=== PATIENT | male | born 1940 | race Caucasian/White ===

== ENCOUNTER 2017-02-24 02:09 | Inpatient (IN) ==
[2017-02-24] MEDS ORDERED: ATROPINE 1 MG/10 ML SYRINGE IV STA (02:20)
[2017-02-24] MEDS ORDERED: GLUCAGON 1 MG VIAL IV STA (02:21)
[2017-02-24] MEDS ORDERED: GLUCAGON 1 MG VIAL ONE (02:21)
[2017-02-24] MEDS ORDERED: ATROPINE 1 MG/1 ML VIAL ONE (02:21)
[2017-02-24] MEDS ORDERED: GLUCAGON 1 MG VIAL IM ONE (02:30)
[2017-02-24] MEDS ORDERED: MAGNESIUM SULF RIDER 4 GM in PREMIX 1 EACH IV PRN (02:47)
[2017-02-24] MEDS ORDERED: MAGNESIUM SULF RIDER 2 GM in PREMIX 1 EACH IV PRN ×2 (02:47→11:20)
--- NOTE | 2017-02-24 02:50 | Emergency Department Note ---
I, Shantell Porter, am scribing for, and in the presence of, Jun Dai MD 02: 28. ISuhas Kevin Lee, MD, personally performed the services described in this documentation, ascribed by Shantell Porter in my presence, and it is both accurate and complete . Arrival - Arrival Limitations: No Limitations Source: Patient - History of Present Illness HPI Narrative: Pt is a 77 y/o male who was transferred from [facility] for further evaluation of SOB with weakness that started earlier yesterday. Pt original BP was 70/44 and slightly elevated troponin of .1, at other facility and had associated sxs of nausea, lightheadedness, and decreased ability to stand. Pt does use a cane. Pt was recently taken off hospice CHF care, due to improvement. 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 Pt's BP is 132/ 50 in ED with a heart rate of 40. Pt sees Dr. Turner. Onset (ago): hour(s) Consistency: constant Severity: moderate Severity scale (1-10): 5 Quality: aching, fullness Allergies/Adverse Reactions: Allergies Allergy/AdvReac Type Severity Reaction Status Date / Time No Known Allergies Allergy Unverified 05/05/16 01:30 Home Medications: Home Medications Medication Instructions Recorded Confirmed Type Clopidogrel [Plavix] 75 mg PO DAILY 05/05/16 05/05/16 History DULoxetine [Cymbalta] 20 mg PO BEDTIME 05/05/16 05/05/16 History Gabapentin 300 mg PO TID 05/05/16 05/05/16 History Isosorbide Mononitrate [Isosorbide 60 mg PO DAILY 05/05/16 05/05/16 History Mononitrate ER] Melatonin 5 mg PO BEDTIME 05/05/16 05/05/16 History Omeprazole [Prilosec] 20 mg PO DAILY 05/05/16 05/05/16 History Simvastatin 5 mg PO BEDTIME 05/05/16 05/05/16 History Tamsulosin [Flomax] 0.4 mg PO DAILY 05/05/16 05/05/16 History busPIRone [Buspar] 10 mg PO BEDTIME 05/05/16 05/05/16 History HYDROcodone/ACETAMIN 10-325 [Matthews 1 tablet PO Q8H PRN #30 tablet 05/07/16 Rx 10-325] Insulin NPH Hum/Reg Insulin Hm 25 unit SUBCUT BID #100 ml 05/07/16 Rx [NovoLIN 70/30] Lisinopril [Prinivil] 40 mg PO DAILY tablet 05/07/16 Rx amLODIPine [Norvasc] 5 mg PO DAILY tablet 05/07/16 Rx clonazePAM [Clonazepam] 1 mg PO BID #60 tablet 05/07/16 Rx Review of System - Review of System 12 point system: reviewed and no additional remarkable complaints except as stated - Review of System Constitutional: Present: weakness. Absent: fever Respiratory: Present: respiratory distress (SOB) Cardiovascular: Absent: chest pain Gastrointestinal: Present: nausea. Absent: abdominal pain, vomiting, diarrhea Musculoskeletal: Absent: arm pain, back pain Neurological: Present: weakness (lightheadedness), abnormal gait. Absent: headache, numbness, paresthesias, confusion Medical,Surgical,& Family Hx - Medical History Cardio: History of: CHF, CAD, Hypertension Neurology: History of: Cerebrovascular Accident (X3) Respiratory: History of: COPD - Surgical History Thoracic Surgeries: Surgical HX of;: Lobectomy (pt states left lower lobe removed) Abdominal Surgeries: Surgical HX of: Abdominal Surgery, Cholecystectomy, Hernia Repair - Social History Smoking Status: Former smoker Marital Status: Lives With:: Spouse Functional capacity: uses cane/walker Exam Vital Signs: Vital Signs Temperature 97.2 F L 02/24/17 02:09 Pulse Rate 40 L 02/24/17 02:09 Respiratory Rate 18 02/24/17 02:09 Blood Pressure 132/50 02/24/17 02:09 O2 Sat by Pulse Oximetry 95 02/24/17 02:09 - General General appearance: alert, in no apparent distress - Head Head exam: Present: atraumatic, normocephalic - Eye Eye exam: Present: PERRL, EOMI - ENT ENT exam: Present: mucous membranes moist. Absent: mucous membranes dry - Neck Neck exam: Present: full ROM. Absent: tenderness - Chest Chest inspection: Present: symmetric chest wall rise. Absent: tenderness - Respiratory Respiratory exam: Present: normal lung sounds bilaterally. Absent: accessory muscle use, respiratory distress - Cardiovascular Cardiovascular exam: Present: bradycardia, normal heart sounds - Extremities Exam Extremities exam: Present: full ROM. Absent: tenderness, pedal edema - Neurological Exam Neurological exam: Present: alert, oriented X3, CN II-XII intact. Absent: motor sensory deficit - Psychiatric Psychiatric exam: Present: normal affect, normal mood - Skin Skin exam: Present: warm, dry Course Course Narrative: pt currently asymptomatic while lying in bed will admit for cards evaluate and treat. hopefully just over B blocked. Results - Labs Lab Results: I have reviewed the patients labs (from OSH see scanned sheets) Disposition Clinical Impression: Bradycardia, Hypotension, Elevated troponin, History of CHF (congestive heart failure) Case discussed with: patient, patient's family Disposition: Still a Patient Condition: Guarded
[2017-02-24] MEDS ORDERED: ENOXAPARIN 30 MG/0.3 ML SYRINGE SUBCUT SCH (03:00)
[2017-02-24 03:26] LABS: Basophils % 0.3 % (0.0-0.8); Eosinophils # 0.4 10*3/uL (0.0-0.87); Eosinophils % 3.2 % (0.00-10.9); Hematocrit 40.6 VOL% (42.0-52.0); Hemoglobin 14.2 GM/DL (14.0-18.0); Immature Granulocytes % 0.7 %; Lymphocytes # 3.8 10*3/uL (1.4-4.0); Lymphocytes % 27.8 % (21.2-54.2); Mean Corpuscular Hemoglobin 32 PG (27-34); Mean Corpuscular Volume 91.9 FL (87-102); Mean Platelet Volume 12.5 FL (9.6-12.0); Monocytes # 1.6 10*3/uL (0.11-0.8); Monocytes % 11.8 % (1.7-12.7); Neutrophils # 7.7 10*3/uL (1.4-7.4); Neutrophils % 56.2 % (38.7-73.9); Platelet Count 207 T/CUMM (130-400); Red Blood Count 4.42 MC/CUMM (3.8-5.5); Red Cell Distribution Width 14.3 % (9.3-17.3); White Blood Count 13.7 T/CUMM (4-12)
[2017-02-24 03:32] LABS: Albumin 2.7 G/DL (3.4-5.0); Bilirubin,Total 0.7 MG/DL (0.2-1.0); Calcium 8.6 MG/DL (8.5-10.1); Osmolality,Calculated 291.1 MOS/KG (273-304); Potassium 3.4 MMOL/L (3.5-5.1); Thyroid Stimulating Hormone 2.5 uIU/ml (0.358-3.74); Total Protein 5.6 G/DL (6.4-8.3)
[2017-02-24 03:33] LABS: Troponin I Only 0.097 NG/ML (0.00-0.045)
[2017-02-24] MEDS: SODIUM CHLORIDE 0.45% 1,000 ML IV SCH ×2 (04:05→16:05)
--- NOTE | 2017-02-24 08:22 | EKG Report ---
Stationary ECG Study [facility] ER Test Date: 02/24/2017 2:19:31 AM Pat Name: MAURILIO PHAN Department: Room: 120 Gender: M Loan Review Analyst: : 1940 Requested by: Jun Chambers Order Number: [id number] Reading MD: TOMASA CLARKE Intervals [place] Rate: 38 P: 999 [place]: 0 QRS: -26 QRSD: 103 T: -30 QT: 511 QTc: 432 Interpretive Statements SUPRAVENTRICULAR BRADYCARDIA BORDERLINE LEFT AXIS DEVIATION ST DEVIATION AND MODERATE T-WAVE ABNORMALITY, CONSIDER ANTERIOR ISCHEMIA Electronically Signed On 02-24-17 09:50:32 CDT by TOMASA CLARKE [email or web address]
--- NOTE | 2017-02-24 08:37 | Cardiology History & Physical ---
Assessment and Plan - Time spent with patient Time spent with patient: Greater than 30 minutes (1) Acute diastolic CHF (congestive heart failure), NYHA class 3 Status: Acute Assessment and plan: SEE PLAN OF CARE LISTED BELOW Current Visit: Yes (2) CAD (coronary artery disease) Status: Chronic Assessment and plan: SEE PLAN OF CARE LISTED BELOW Current Visit: Yes (3) Hx of CABG Status: Chronic Assessment and plan: SEE PLAN OF CARE LISTED BELOW Current Visit: Yes (4) Elevated troponin Status: Acute Assessment and plan: SEE PLAN OF CARE LISTED BELOW Current Visit: Yes (5) Chest pain Status: Acute Assessment and plan: SEE PLAN OF CARE LISTED BELOW Current Visit: Yes (6) History of CVA (cerebrovascular accident) Status: Chronic Assessment and plan: SEE PLAN OF CARE LISTED BELOW Current Visit: No (7) Debility, unspecified Status: Chronic Assessment and plan: SEE PLAN OF CARE LISTED BELOW Current Visit: No (8) CAD (coronary artery disease) Status: Chronic Current Visit: No (9) Hypertension Status: Chronic Assessment and plan: SEE PLAN OF CARE LISTED BELOW Current Visit: No (10) Dyslipidemia Status: Chronic Assessment and plan: SEE PLAN OF CARE LISTED BELOW Current Visit: No (11) Diabetes Status: Chronic Assessment and plan: SEE PLAN OF CARE LISTED BELOW Current Visit: No (12) Bradycardia Status: Acute Assessment and plan: SEE PLAN OF CARE LISTED BELOW Current Visit: Yes (13) Hypotension Status: Acute Assessment and plan: SEE PLAN OF CARE LISTED BELOW Current Visit: Yes History of Present Illness Chief complaint: Bradycardia, chest pain, elevated troponin, known coronary artery disease History of present illness: LEAN SPECIALIST: DR. MCNULTY PCP: DR. TERRENCE GONZALEZ Patient is being seen in the CCU. Mr. Roy, 77WM, previously followed by Dr. Mcnulty in hospital with no clinic follow-up. Previously seen Dr. Lyles in [place], [place] but not followed up in many years. Risk factors include: Age, known coronary artery disease (S/P CABG 2006 in [place], [place]), hypertension, dyslipidemia, diabetes, CVA, sedentary lifestyle. He also has history of bradycardia, COPD, general debility from 3 prior strokes. There are no records in [facility] or [facility] regarding prior heart catheterizations however, patient has had a C since his CABG where a vein graft was noted to be occluded. He believes this may have been at [facility] and I will request records. Echocardiogram 05/05/2016: EF 55%, grade 1 diastolic dysfunction, PAP 17 mmHg. Presented to the ED of [facility] in transfer from [facility] emergency department with complaints of shortness of breath, weakness hypotension and bradycardia. Troponin was noted to be 0.1. Initially, blood pressure was noted be 70/44, heart rate 38 beat p.m. Upon arrival to the ED [facility] blood pressure 132/50, heart rate 40 (sinus bradycardia). Tuesday, while sitting, patient reports he began to feel chest pressure in the center of his chest without radiation. It did cause shortness of breath, no nausea or diaphoresis. He took one nitroglycerin and the chest pain improved but continued to return intermittently through the remainder of the week. Rates the discomfort as a 7 on a scale of 1-10, currently chest pain- free. Did experience worsening shortness of breath since Tuesday. Patient usually takes Lasix 80 mg orally daily. Over the course of the past several days he has taken several additional Lasix and diuresed very well. ProBNP greater than 2000 at [facility]. This morning, he is not orthopneic and is breathing comfortably. He still has crackles in the bases posteriorly. Patient is on metoprolol. After reviewing his heart rhythms it is noted that this is a sinus bradycardia. Will hold metoprolol as well as clonidine and monitor his heart rate. Patient was hospitalized in the fall 2015 was noted to have a heart rate in the 40s and 50s at that time. Depending on his response to holding juan blocking agents, may be candidate for permanent pacemaker implantation. Keeping patient NPO. He has received aspirin, Lovenox, Plavix. Holding nitrates, SUGAR and beta blockers due to hypotension which is improving. He did take his cholesterol-lowering agent last evening. He is receiving IV hydration at this time and additionally, no cardiomyopathy has been noted. He has responded well in all continue to hold his antihypertensives at this time. EKG this morning. Continue to cycle his cardiac biomarkers. Patient may be a candidate for cardiac catheterization. I did speak with and Mrs. Roy about the possibility and they are agreeable to proceed. Tomorrow, may consider echocardiogram or schedule outpatient echo and evaluate EF with left ventriculogram. I will further discuss with Dr. Farooq and await additional recommendations. ASSESSMENT/PLAN: 1. CHEST PAIN - concerning for angina. Keeping him NPO. Has received appropriate medications as able 2. KNOWN CAD - S/P CABG 2006 with [facility] since identifying an occluded vein graft. Requesting records from [place], [place] 3. HYPOTENSION - resolved. May have been volume depleted as patient did take several additional oral diuretics. With IV hydration and holding of antihypertensives, this has improved. 4. DYSLIPIDEMIA - fasting lipid profile. Continue lipid-lowering agent 5. BRADYCARDIA - sinus bradycardia. Prior history of slow heart rates primarily in the 40s and 50s. Holding metoprolol and clonidine. Will continue to follow. May eventually need permanent pacemaker. 6. ELEVATED TROPONIN -continue cycle cardiac biomarkers. He has been treated as his blood pressure will allow with appropriate medications. 7. ACUTE CHF -etiology uncertain. Traditionally he has had a normal ejection fraction with grade 1 diastolic dysfunction. Certainly, this is diastolic dysfunction possibly related to his sinus bradycardia. [place] Heart Association Classification III 8. DEBILITY - continue current plan of care 9. HISTORY OF CVA - taking aspirin and Plavix for history of 3 prior CVAs leaving him somewhat physically debilitated 10. DIABETES - hold Metformin. Sliding scale insulin. Home Medications Medication Instructions Recorded Confirmed Type Clopidogrel [Plavix] 75 mg PO DAILY 05/05/16 02/24/17 History DULoxetine [Cymbalta] 20 mg PO BEDTIME 05/05/16 02/24/17 History Gabapentin 300 mg PO TID 05/05/16 02/24/17 History Isosorbide Mononitrate [Isosorbide 60 mg PO DAILY 05/05/16 02/24/17 History Mononitrate ER] Melatonin 5 mg PO BEDTIME 05/05/16 02/24/17 History Omeprazole [Prilosec] 20 mg PO DAILY 05/05/16 02/24/17 History Simvastatin 5 mg PO BEDTIME 05/05/16 02/24/17 History Tamsulosin [Flomax] 0.4 mg PO DAILY 05/05/16 02/24/17 History busPIRone [Buspar] 10 mg PO BEDTIME 05/05/16 02/24/17 History HYDROcodone/ACETAMIN 10-325 [Etta 1 tablet PO Q8H PRN #30 tablet 05/07/1602/24 Rx 10-325] Insulin NPH Hum/Reg Insulin Hm 25 unit SUBCUT BID #100 ml 05/07/16 02/24/17 Rx [NovoLIN 70/30] Lisinopril [Prinivil] 40 mg PO DAILY tablet 05/07/16 02/24/17 Rx amLODIPine [Norvasc] 5 mg PO DAILY tablet 05/07/16 02/24/17 Rx clonazePAM [Clonazepam] 1 mg PO BID #60 tablet 05/07/16 02/24/17 Rx Bisacodyl Tab [Dulcolax Tab] 5 mg PO BEDTIME 02/24/17 02/24/17 History Bisacodyl Tab [Dulcolax Tab] 5 mg PO DAILY 02/24/17 02/24/17 History Cholecalciferol [Vitamin D3] 1,000 unit PO DAILY 02/24/17 02/24/17 History Furosemide 40 mg PO BID 02/24/17 02/24/17 History Meloxicam 7.5 mg PO DAILY 02/24/17 02/24/17 History Metoprolol Tartrate 25 mg PO DAILY 02/24/17 02/24/17 History Potassium Chloride 10 meq PO BID 02/24/17 02/24/17 History tiZANidine [Zanaflex] 4 mg PO QID 02/24/17 02/24/17 History Allergies Allergy/AdvReac Type Severity Reaction Status Date / Time No Known Allergies Allergy Unverified 05/05/16 01:30 Review of systems: REVIEW OF SYSTEMS: - Constitutional Constitutional: Present: Fatigue. Absent: syncope, anorexia, night sweats - EENT Eyes: Absent: blurry vision, loss of vision, diplopia Ears: Absent: decreased hearing, ear pain, ear discharge - Cardiovascular Cardiovascular: Present: chest pain with exertion and at rest. Dyspnea at rest , dyspnea on exertion, orthopnea. Bilateral lower extremity edema improved overnight. Denies palpitations. Absent: chest pain with deep breath, claudication - Respiratory Respiratory: Present: CATES, cough. Absent: wheezing, hemoptysis, change in phlegm color - Gastrointestinal Gastrointestinal: Denies : constipation. Absent: abdominal pain, hematemesis , hematochezia, melena, change in bowel habits, nausea - Genitourinary Genitourinary: Absent: difficulty urinating, dysuria, urinary hesitancy, flank pain - Musculoskeletal Musculoskeletal: Present: back pain Absent: joint swelling, muscle cramps, muscle weakness - Neurological Neurological: Present: Poor gait without frequent falls. Generalized weakness absent: dizziness - Psychiatric Psychiatric: Absent: anxiety, depression, difficulty concentrating - Endocrine Endocrine: Present: fatigue. Absent: cold intolerance, heat intolerance, polyuria, polyphagia, polydipsia - Hematologic/Lymphatic Hematologic/Lymphatic: Present: easy bruising. Absent: easy bleeding -Integumentary Integumentary: Absent: lesions, rashes, skin breakdown Medical,Surgical,& Family Hx - Medical History Cardio: History of: CHF, CAD, Hypertension Neurology: History of: Cerebrovascular Accident (X3) Endocrine: History of: Diabetes Mellitus (IDDM), Dyslipidemia Respiratory: History of: COPD - Surgical History Thoracic Surgeries: Surgical HX of;: Lobectomy (pt states left lower lobe removed) Abdominal Surgeries: Surgical HX of: Abdominal Surgery, Cholecystectomy, Hernia Repair - Social History Smoking Status: Never smoker Frequency of Alcohol Use: None Type of Drug Use: None Marital Status: Lives With:: Spouse Functional capacity: uses cane/walker Cardiology Physical Exam - Constitutional Vitals: Vital Signs Temp Pulse Resp BP Pulse Ox 97.2 F L 38 L 18 132/53 93 L 02/24/17 03:50 02/24/17 07:00 02/24/17 07:00 02/24/17 07:00 02/24/17 07:00 Intake and Output 02/23/17 02/24/17 02/24/17 23:59 07:59 15:59 Intake Total 0 / 0 Balance 0 / 0 Intake: Oral 0 / 0 Other: Emesis 0 # Voids 0 # Bowel Movements 0 Weight 80.031 kg Patient Weight 02/24/17 23:59 Weight 80.031 kg Exam: General: [Appears well with no apparent distress.] [Pleasant and cooperative. ] [Appears comfortable.] HEENT: [PERRL, normocephalic, atraumatic. Mucous membranes moist. No jaundice noted. Conjunctiva moist and clear, sclerae anicteric] Neck: Unable to assess for JVD. No thyromegaly or lymphadenopathy noted. No carotid bruit appreciated Cardiac: [Slow rate and rhythm.] [No obvious murmur rub or gallop.] Lungs: [Inspiratory crackles noted posteriorly in the bases without accessory muscle use to assist the respiratory pattern.] Oxygen in use via nasal cannula. Well-healed left flank scar Abdomen: Soft, bowel sounds normoactive. Nontender and nondistended. No abdominal bruit or thrill noted. No masses noted. Musculoskeletal: No fluid collection. Decreased range of motion is noted. Extremities: No clubbing, cyanosis noted. [ No edema noted.] Upper extremity pulses 2+. Lower extremity pulses 2+. Capillary refill less than 3 seconds. Skin: No unusual lesions or rashes. No skin breakdown appreciated. Neuro: Awake, alert and oriented 3. Moves all extremities but severe, generalized poor strength noted. No essential tremor is appreciated. Result/EKG - Labs CBC & BMP: 02/24/17 02:39 02/24/17 02:39 Lab Results: I have reviewed the past 24 hour labs Labs: Laboratory Results - last 24 hr 02/24/17 02/24/17 02/24/17 02:39 02:39 02:39 WBC 13.7 H RBC 4.42 Hgb 14.2 Hct 40.6 L MCV 91.9 MCH 32 MCHC 35.0 RDW 14.3 Plt Count 207 MPV 12.5 H Neut % (Auto) 56.2 Lymph % (Auto) 27.8 Bertie % (Auto) 11.8 Eos % (Auto) 3.2 Baso % (Auto) 0.3 Neut # (Auto) 7.7 H Lymph # (Auto) 3.8 Bertie # (Auto) 1.6 H Eos # (Auto) 0.4 Baso # (Auto) 0.0 Immature Gran % 0.7 Nucleated RBC % 0.0 Immature Gran # 0.10 Nucleated RBCs # 0.00 Immature Plt Fraction 0.0 Sodium 142 Potassium 3.4 L Chloride 108 H Carbon Dioxide 27 Anion Gap 10.4 BUN 29 H Creatinine 0.90 GFR Calculation 93 BUN/Creatinine Ratio 32.00 H Glucose 144 H Calculated Osmolality 291.1 Calcium 8.6 Magnesium 2.2 Total Bilirubin 0.70 AST 10 ALT 13 L Alkaline Phosphatase 84 Troponin I 0.097 H Total Protein 5.6 L Albumin 2.7 L Globulin 2.9 Albumin/Globulin Ratio 0.9 L TSH 3rd Generation 2.500 - Diagnostic Findings Procedure: Chest x-ray: report reviewed by me - EKG EKG results: interpreted by wy EKG shows: bradycardia
[2017-02-24 08:43] LABS: Troponin I Only 0.091 NG/ML (0.00-0.045)
[2017-02-24] MEDS ORDERED: clonazePAM 0.5 MG TABLET PO SCH (09:00)
[2017-02-24] MEDS ORDERED: CLOPIDOGREL 75 MG TABLET PO SCH (09:00)
[2017-02-24] MEDS ORDERED: amLODIPine 5 MG TABLET PO SCH (09:00)
[2017-02-24] MEDS ORDERED: LISINOPRIL 20 MG TABLET PO SCH (09:00)
[2017-02-24] MEDS: POTASSIUM CHLORIDE 10 MEQ TABLET PO SCH ×2 (09:48→21:38)
[2017-02-24 10:07] LABS: Basophils % 0.3 % (0.0-0.8); Eosinophils # 0.5 10*3/uL (0.0-0.87); Eosinophils % 3.9 % (0.00-10.9); Hematocrit 40.8 VOL% (42.0-52.0); Hemoglobin 14.2 GM/DL (14.0-18.0); Immature Granulocytes % 0.5 %; Immature Granulocytes Absolute 0.06 #; Lymphocytes # 4.4 10*3/uL (1.4-4.0); Lymphocytes % 34.9 % (21.2-54.2); Mean Corpuscular HGB Conc 34.8 GM/DL (32-36); Mean Corpuscular Hemoglobin 32 PG (27-34); Mean Corpuscular Volume 91.1 FL (87-102); Mean Platelet Volume 12.9 FL (9.6-12.0); Monocytes # 1.4 10*3/uL (0.11-0.8); Monocytes % 11.3 % (1.7-12.7); Neutrophils # 6.1 10*3/uL (1.4-7.4); Neutrophils % 49.1 % (38.7-73.9); Platelet Count 204 T/CUMM (130-400); Red Blood Count 4.48 MC/CUMM (3.8-5.5); Red Cell Distribution Width 14.4 % (9.3-17.3); White Blood Count 12.5 T/CUMM (4-12)
[2017-02-24 10:18] LABS: Calcium 8.5 MG/DL (8.5-10.1); Magnesium 2.3 MG/DL (1.8-2.4); Potassium 3.5 MMOL/L (3.5-5.1); Risk Ratio 2.77; VLDL CHOLESTEROL 10.8 MG/DL
[2017-02-24] MEDS ORDERED: ENOXAPARIN 40 MG/0.4 ML SYRINGE SUBCUT ONE (11:05)
[2017-02-24] MEDS ORDERED: POTASSIUM CHLORIDE 20 MEQ PACK PO ONE (11:17)
[2017-02-24] MEDS ORDERED: DIAZEPAM 5 MG TABLET PO ONE (11:20)
[2017-02-24] MEDS ORDERED: POTASSIUM CHLORIDE RIDER 10 MEQ in PREMIX 1 EACH IV PRN (11:20)
[2017-02-24] MEDS ORDERED: diphenhydrAMINE CAP 25 MG CAPSULE PO ONE (11:20)
--- NOTE | 2017-02-24 11:22 | History and Physical Update ---
Sedation H&P Update - History and Physical H&P was reviewed, the patient examined and there: are no changes in the patients condition since last H&P was completed. - Dictation Physical: refer to H&P completed by admitting physician - Physical Exam Mental Status: alert and oriented Heart: regular rate and rhythm Lung: clear to auscultation Abdomen: within normal limits Vitals: within normal limits - Sedation Plan for Sedation: minimal Patient Consent: Procedure disscussed with patient and patinet has consented., Risks and benefits were discussed with patient,including infection,, bleeding, injury to surrounding structures, seizure, temporary nerve, Patient understands and accepts potential risks/benefits and agrees to, proceed. ASA Class: III Airway Assessment: Class II: Soft palate, uvula, fauces visible
[2017-02-24 11:24] LABS: INR 1.3; PT Patient Result 13.4 SECS
[2017-02-24] MEDS ORDERED: ASPIRIN 325 MG TABLET PO ONE (11:30)
--- NOTE | 2017-02-24 11:41 | XRay Report ---
2 view chest. Indication: Congestive heart failure. Comparison: Yesterday's exam. The heart is normal in size. Post median sternotomy. The pulmonary vasculature is normal. There are fibrotic changes present within the lung valdivia. There is increasing abnormality in the right perihilar region. Questionable tiny bilateral pleural effusions. Degenerative changes are present within the spinal column. Surgical clips in the right upper quadrant. Impression: Chronic lung changes. Worsening opacity in the right perihilar region consistent with superimposed pneumonia. Follow-up recommended. PROCEDURE INTERPRETED AT [facility] DEPARTMENT OF RADIOLOGY Final Report Signed by: Dr. Marylu Pizarro
[2017-02-24] MEDS: TAMSULOSIN 0.4 MG CAPSULE PO SCH ×2 (12:38→16:39)
[2017-02-24] MEDS: INSULIN NPH/REGULAR 70/30 100 UNIT/ML SUBCUT SCH ×2 (12:38→21:40)
[2017-02-24] MEDS: BISACODYL 5 MG TABLET PO SCH ×2 (12:38→21:39)
[2017-02-24] MEDS: ISOSORBIDE MONONITRATE 60 MG TABLET PO SCH ×2 (12:38→16:40)
[2017-02-24] MEDS: FUROSEMIDE 40 MG TABLET PO SCH ×2 (12:39→21:39)
[2017-02-24] MEDS: PANTOPRAZOLE 40 MG TABLET PO SCH (12:39)
[2017-02-24] MEDS: GABAPENTIN 300 MG CAPSULE PO SCH ×3 (12:39→21:39)
[2017-02-24] MEDS: tiZANidine 4 MG TABLET PO SCH ×4 (12:40→21:40)
[2017-02-24] MEDS: CHOLECALCIFEROL 1,000 UNIT TABLET PO SCH (12:40)
[2017-02-24] MEDS ORDERED: DEXTROSE 50% 25 GM/50 ML SYRINGE IV ONE (13:29)
[2017-02-24] MEDS ORDERED: DEXTROSE 50% 25 GM/50 ML VIAL IV PRN (13:31)
[2017-02-24] MEDS ORDERED: LIDOCAINE 1% 20 ML VIAL ONE (14:20)
[2017-02-24] MEDS ORDERED: HYDROmorphone 2 MG/1 ML VIAL ONE (14:26)
[2017-02-24] MEDS ORDERED: MIDAZOLAM 2 MG/2 ML VIAL ONE (14:27)
[2017-02-24] MEDS ORDERED: ENOXAPARIN 60 MG/0.6 ML SYRINGE ONE (15:02)
[2017-02-24] MEDS ORDERED: TICAGRELOR 90 MG TABLET ONE (15:17)
[2017-02-24] MEDS ORDERED: ACETAMINOPHEN 325 MG TABLET PO PRN (15:18)
--- NOTE | 2017-02-24 15:35 | Cardiac Catheterization ---
Date of Procedure:: 02/24/17 Post-op diagnosis: same Procedure: Procedure performed: 1. Left heart catheterization 2. Coronary angiography 3. Left ventriculography 4. Bypass graft evaluation 3 5. Angioplasty and stenting of distal vein graft RCA with drug-eluting stent ( 2.25 x 28 Gunnar's) 6. Right femoral arteriotomy closure with Angio-Seal device Brief clinical summary: Mr. Roy is a 77-year-old history of CABG in 2006 at [facility] with reported three-vessel bypass per his report and one graft closed in the past. He comes with symptoms concerning for acute coronary syndrome with troponin of 0.1. Description of procedure: After obtaining informed consent, the right groin was prepped and draped in the usual sterile fashion. Next a short 6 Irish sheath was placed in the right femoral artery using a modified Seldinger technique, after the patient received IV sedation and local anesthetic. Next a JL4 catheter was advanced over a guidewire under fluoroscopic guidance, and was engaged to the left coronary artery after which angiography was performed in multiple views. This was then removed over a wire, and a JR4 catheter was advanced in similar fashion, and was engaged to the right coronary artery after which angiography was performed in multiple views. It was then pulled back and used to engage the 2 vein grafts and the manipulated into the left subclavian or I was unable to visualize COHEN. Therefore I changed over a long wire for a COHEN catheter was able to eventually find the COHEN very proximally and performed angiogram in multiple views. This was then removed over a J-wire. After this percutaneous coronary mention was performed as described below. Next a bent pigtail catheter was advanced into the left ventricle, where hemodynamic measurements were obtained, and left ventriculography was performed. An angiogram of the sheath showed that it was inserted in the right common femoral artery in a vessel suitable for closure. Hemostasis was obtained with Angio-Seal device with no residual bleeding. 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 Percutaneous coronary mention: The patient out of the [place] having received aspirin earlier today as well as low-dose subcutaneous Lovenox. I gave him 0.6 mg/kg of IV Lovenox prior to procedure. He was loaded with Brilinta 180 mg after the procedure. A multipurpose to guiding catheter was advanced engaged the vein graft to the RCA. Next a pro-water wire was manipulated to the right posterior lateral through the vein graft. After this a 2.25 x 20 balloon was advanced across the distal lesion and was dilated at nominal pressures. Was then pulled back several millimeters and I dilated the other tandem lesion to approximate nominal pressures. The balloon was then removed and a 2.25 x 28 [place] stent was advanced covering both lesions and extending just past the anastomosis into the cheesh-na right coronary artery. It was deployed at nominal pressors or 2.27 mm achieving excellent angiographic result. There was JES-3 flow before and after. The patient tolerated procedure well without complication. Coronary angiography: Left main coronary arteries normal developed and free disease per left introducing arteries occluded very proximally with a small "nub ". There is actually an average caliber diagonal branch that comes out very proximally prior to the occlusion. The circumflex has a tubular 60% area of proximal stenosis, and gives off a thin OM1 and OM 2 branch as well as a late OM 3 which has a 60% ostial stenosis (at least average caliber, long branch). There is also a couple of thin posterolaterals. Right coronary artery is a dominant vessel is nearly average in caliber. There is a tubular 70% long proximal stenosis and a discrete 99% late mid stenosis. There appears to be a thin PDA and posterolateral branch distally. The vein graft can be seen "backfilling" from the nares cheesh-na circulation. Grafts: The COHEN has a very early takeoff but is widely patent with normal flow. It inserts very distally on the LAD. The vein graft to the RCA is slightly smaller than average conduit with normal flow but with tandem distal lesions near the anastomosis of 80% and 99% respectively. There is a knob/ occluded vein graft presumably that went to the obtuse marginal, is likely the one that was previously noted to be occluded. Left ventricular LV: Left ventricle appears to be mildly enlarged with moderate to large area of akinesis in the mid to distal anterior wall not involving the apex. The overall ejection fraction is estimated to be 35%. Impression: 1. Approximately moderately reduced LV systolic function with ejection fraction estimated 35% with moderate to large area of anterior akinesis 2. Right dominant system 3. Three-vessel coronary artery disease as described above including but not limited to: A. Proximal LAD occlusion B. 60% tubular proximal circumflex stenosis with 60% ostial OM 3 stenosis ( only reasonably large obtuse marginal) C. 99% mid RCA stenosis 4. Grafts: A. COHEN to LAD is widely patent with normal flow and inserts very distally B. Occluded vein graft at the ostium (presumably went to the circumflex system and reportedly was previously occluded) C. Patent vein graft to distal RCA with tandem distal stenoses near the anastomosis (80% to 99% respectively) 5. Status post angioplasty and stenting of tandem distal vein graft lesions near the anastomosis of the vein graft RCA with 2.25 x 28 [place] stent with excellent result. Recommendation discussion: I believe we achieved a very good result cart distending Mr. Roy's critical vein graft lesions at the anastomosis and just proximal to it to the RCA and the vein graft. He will need to continue on baby aspirin Brilinta and will need to avoid squatting strain lifting for the next week. He will be observed overnight on IV hydration to avoid MIKEY, although his creatinine is normal this morning. Anesthesia: minimal conscious sedation Surgeon / Physician: Sergio Wyman Pen And Pencil Repairer: other Estimated blood loss: minimal Specimens: none sent Condition: stable Disposition: ICU/CCU - Medications / Follow-up
[2017-02-24] MEDS ORDERED: GLUCAGON 1 MG VIAL IM PRN (15:55)
[2017-02-24] MEDS ORDERED: DEXTROSE 50% 25 GM/50 ML SYRINGE IV PRN (15:55)
--- NOTE | 2017-02-24 15:55 | EKG Report ---
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
[2017-02-24] MEDS: INSULIN REGULAR 100 UNIT/ML SUBCUT SCH ×2 (16:33→21:41)
[2017-02-24 17:17] LABS: Troponin I Only 0.076 NG/ML (0.00-0.045)
[2017-02-24] MEDS ORDERED: ENOXAPARIN 60 MG/0.6 ML SYRINGE SUBCUT SCH (21:00)
[2017-02-24] MEDS: SIMVASTATIN 10 MG TABLET PO SCH (21:38)
[2017-02-24] MEDS: busPIRone 10 MG TABLET PO SCH (21:39)
[2017-02-24] MEDS: TICAGRELOR 90 MG TABLET PO SCH (21:40)
[2017-02-24] MEDS: DULoxetine 20 MG CAPSULE PO SCH (21:40)
[2017-02-25 01:42] LABS: Troponin I Only 0.109 NG/ML (0.00-0.045)
[2017-02-25] MEDS: SODIUM CHLORIDE 0.45% 1,000 ML IV SCH (04:31)
[2017-02-25 06:45] LABS: Basophils % 0.4 % (0.0-0.8); Eosinophils # 0.5 10*3/uL (0.0-0.87); Eosinophils % 4.4 % (0.00-10.9); Hematocrit 43.3 VOL% (42.0-52.0); Hemoglobin 14.8 GM/DL (14.0-18.0); Immature Granulocytes % 0.6 %; Immature Granulocytes Absolute 0.07 #; Lymphocytes # 2.8 10*3/uL (1.4-4.0); Lymphocytes % 25.5 % (21.2-54.2); Mean Corpuscular HGB Conc 34.2 GM/DL (32-36); Mean Corpuscular Hemoglobin 31 PG (27-34); Mean Corpuscular Volume 91.4 FL (87-102); Monocytes # 1.3 10*3/uL (0.11-0.8); Monocytes % 12.2 % (1.7-12.7); Neutrophils # 6.2 10*3/uL (1.4-7.4); Neutrophils % 56.9 % (38.7-73.9); Platelet Count 232 T/CUMM (130-400); Red Blood Count 4.74 MC/CUMM (3.8-5.5); Red Cell Distribution Width 14.4 % (9.3-17.3); White Blood Count 10.9 T/CUMM (4-12)
[2017-02-25 07:21] LABS: Blood Urea Nitrogen 19 MG/DL (7-18); Glucose 118 MG/DL (74-106); Osmolality,Calculated 283.3 MOS/KG (273-304); Potassium 3.9 MMOL/L (3.5-5.1); Sodium 141 MMOL/L (136-145)
[2017-02-25 07:23] LABS: Calcium 9.4 MG/DL (8.5-10.1); Osmolality,Calculated 284.3 MOS/KG (273-304); Troponin I Only 0.129 NG/ML (0.00-0.045)
--- NOTE | 2017-02-25 07:37 | EKG Report ---
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
--- NOTE | 2017-02-25 08:18 | Cardiology Progress Note ---
Assessment and Plan - Time spent with patient Time spent with patient: Greater than 30 minutes (1) CAD (coronary artery disease) Status: Chronic Assessment and plan: SEE PLAN OF CARE LISTED BELOW Current Visit: Yes (2) Hx of CABG Status: Chronic Assessment and plan: SEE PLAN OF CARE LISTED BELOW Current Visit: Yes (3) Elevated troponin Status: Acute Assessment and plan: SEE PLAN OF CARE LISTED BELOW Current Visit: Yes (4) Chest pain Status: Acute Assessment and plan: SEE PLAN OF CARE LISTED BELOW Current Visit: Yes (5) History of CVA (cerebrovascular accident) Status: Chronic Assessment and plan: SEE PLAN OF CARE LISTED BELOW Current Visit: No (6) Debility, unspecified Status: Chronic Assessment and plan: SEE PLAN OF CARE LISTED BELOW Current Visit: No (7) CAD (coronary artery disease) Status: Chronic Current Visit: No (8) Hypertension Status: Chronic Assessment and plan: SEE PLAN OF CARE LISTED BELOW Current Visit: No (9) Dyslipidemia Status: Chronic Assessment and plan: SEE PLAN OF CARE LISTED BELOW Current Visit: No (10) Diabetes Status: Chronic Assessment and plan: SEE PLAN OF CARE LISTED BELOW Current Visit: No (11) Bradycardia Status: Acute Assessment and plan: SEE PLAN OF CARE LISTED BELOW Current Visit: Yes (12) Hypotension Status: Acute Assessment and plan: SEE PLAN OF CARE LISTED BELOW Current Visit: Yes (13) CHF (congestive heart failure), NYHA class III Status: Acute Assessment and plan: SEE PLAN OF CARE LISTED BELOW Current Visit: Yes Qualifiers: Congestive heart failure type: combined Congestive heart failure chronicity : acute Qualified Code(s): I50.41 - Acute combined systolic (congestive) and diastolic (congestive) heart failure (14) Ischemic cardiomyopathy Status: Acute Assessment and plan: SEE PLAN OF CARE LISTED BELOW Current Visit: Yes (15) Non-STEMI (non-ST elevated myocardial infarction) Status: Acute Assessment and plan: SEE PLAN OF CARE LISTED BELOW Current Visit: Yes Cardiology - PN: Subj Interval history: 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 MCNULTY PCP: DR. TERRENCE GONZALEZ Patient is being seen in the CCU. SUMMARY: Mr. Roy, 77WM, has a history of known coronary artery disease (S/ P CABG 2006 in [place], [place]), hypertension, dyslipidemia, diabetes, CVA, bradycardia, COPD, general debility from 3 prior strokes. Admitted February 24, 2017 with complaints of chest pain, shortness of breath, hypotensive and bradycardic, troponin mildly elevated. He underwent heart catheterization, performed by Dr. Wyman with the following noted: Impression: 1. Approximately moderately reduced LV systolic function with ejection fraction estimated 35% with moderate to large area of anterior akinesis 2. Right dominant system 3. Three-vessel coronary artery disease as described above including but not limited to: A. Proximal LAD occlusion B. 60% tubular proximal circumflex stenosis with 60% ostial OM 3 stenosis ( only reasonably large obtuse marginal) C. 99% mid RCA stenosis 4. Grafts: A. COHEN to LAD is widely patent with normal flow and inserts very distally B. Occluded vein graft at the ostium (presumably went to the circumflex system and reportedly was previously occluded) C. Patent vein graft to distal RCA with tandem distal stenoses near the anastomosis (80% to 99% respectively) 5. Status post angioplasty and stenting of tandem distal vein graft lesions near the anastomosis of the vein graft RCA with 2.25 x 28 Gunnar stent with excellent result. FEBRUARY 25, 2017: Tolerated the procedure well without complication. Overnight , Mr. Roy is feeling better. Denies chest pain, heaviness or tightness. Breathing has improved. He has diuresed nicely overnight, lost 3 kg since admission. Labs are stable. Right groin is soft, free of hematoma or bruit. Patient remains bradycardic however, beta-blockade has now been healed. This is a sinus bradycardia and he seems to be asymptomatic. Heart rate this morning 52. Patient is interested in discharge home. He may benefit from an additional night in the hospital as we continue with diuresis. However, I will round back this afternoon and consider him a possibility of discharge home this afternoon depending on his progress through the day. Will further discuss with Dr. rodriguez and await additional recommendations. Patient will need outpatient echocardiogram at discharge as his EF is now 35% (previously noted to be 55% 2016). I will go ahead and arrange for outpatient echo to be performed in the next 4-6 weeks at [facility]. ASSESSMENT/PLAN: 1. NSTEMI - now status post revascularization. Avoiding beta blockers due to bradycardia. Will add low-dose SUGAR inhibitor today for better blood pressure control and treatment of cardiomyopathy. 2. KNOWN CAD - see heart catheterization report listed above. Continue aspirin, Brilinta, lipid-lowering agent. 3. HYPOTENSION - resolved. 4. DYSLIPIDEMIA -LDL 50. He is at goal. Continue lipid-lowering agent 5. BRADYCARDIA - sinus bradycardia. Seems to be stable, he is asymptomatic. Continue to hold Metoprolol and Clonidine. 6. ACUTE CHF - secondary to systolic dysfunction (EF 35%) and diastolic dysfunction, NYHA Class II-III. 8. DEBILITY - continue current plan of care 9. HISTORY OF CVA - taking Aspirin for history of 3 prior CVAs leaving him somewhat physically debilitated 10. DIABETES - hold Metformin. Sliding scale insulin. 11. ICM - EF 35%. Adding low-dose SUGAR inhibitor. Unable to incorporate beta- ny due to bradycardia. Exam (Progress Note) - Constitutional Vitals: Period Temp Pulse Resp BP Sys/Luna Pulse Ox Last 24 Hr 97.6 F-98.4 F 36-55 12-24 113-171/54-86 92-99 Exam: General: [Appears well with no apparent distress.] [Pleasant and cooperative. ] [Appears comfortable.] HEENT: [PERRL, normocephalic, atraumatic. Mucous membranes moist. No jaundice noted. Conjunctiva moist and clear, sclerae anicteric] Neck: No JVD/HJR, no thyromegaly or lymphadenopathy noted. No carotid bruit appreciated Cardiac: [Regular rate and rhythm.] [No murmur rub or gallop.] Lungs: [Clear to auscultation without accessory muscle use to assist the respiratory pattern.] Not requiring oxygen Abdomen: Soft, bowel sounds normoactive. Nontender and nondistended. No abdominal bruit or thrill noted. No masses noted. Musculoskeletal: No fluid collection. Decreased range of motion is noted. Extremities: Right groin soft, free of hematoma or bruit. No clubbing, cyanosis noted. [ No edema noted.] Upper extremity pulses 2+. Lower extremity pulses 2+. Capillary refill less than 3 seconds. Skin: No unusual lesions or rashes. No skin breakdown appreciated. Neuro: Awake, alert and oriented 3. All extremities with chronic weakness. No essential tremor is appreciated. Result/EKG - Labs CBC & BMP: 02/25/17 05:42 02/25/17 05:42 Lab Results: I have reviewed the past 24 hour labs Labs: Laboratory Results - last 24 hr 02/24/17 02/24/17 02/24/17 07:54 07:54 07:54 WBC 12.5 H RBC 4.48 Hgb 14.2 Hct 40.8 L MCV 91.1 MCH 32 MCHC 34.8 RDW 14.4 Plt Count 204 MPV 12.9 H Neut % (Auto) 49.1 Lymph % (Auto) 34.9 Blaine % (Auto) 11.3 Eos % (Auto) 3.9 Baso % (Auto) 0.3 Neut # (Auto) 6.1 Lymph # (Auto) 4.4 H Blaine # (Auto) 1.4 H Eos # (Auto) 0.5 Baso # (Auto) 0.0 Immature Gran % 0.5 Nucleated RBC % 0.0 Immature Gran # 0.06 Nucleated RBCs # 0.00 Immature Plt Fraction 0.0 INR PT Patient/Control Mix Sodium 143 Potassium 3.5 Chloride 109 H Carbon Dioxide 26 Anion Gap 11.5 BUN 31 H Creatinine 0.80 GFR Calculation 99 BUN/Creatinine Ratio 38.00 H Glucose 57 L POC Glucose Calculated Osmolality 289.0 Calcium 8.5 Magnesium 2.3 Total Creatine Kinase 53 CK-MB (CK-2) 3.4 Troponin I 0.091 H Triglycerides 54 Cholesterol 97 LDL Cholesterol 50.0 VLDL Cholesterol 10.8 HDL Cholesterol 35 L Heart Disease Risk Ratio 2.77 02/24/17 02/24/17 02/24/17 10:15 12:46 13:28 WBC RBC Hgb Hct MCV MCH MCHC RDW Plt Count MPV Neut % (Auto) Lymph % (Auto) Blaine % (Auto) Eos % (Auto) Baso % (Auto) Neut # (Auto) Lymph # (Auto) Blaine # (Auto) Eos # (Auto) Baso # (Auto) Immature Gran % Nucleated RBC % Immature Gran # Nucleated RBCs # Immature Plt Fraction INR 1.3 PT Patient/Control Mix 13.4 Sodium Potassium Chloride Carbon Dioxide Anion Gap BUN Creatinine GFR Calculation BUN/Creatinine Ratio Glucose POC Glucose 74 70 L Calculated Osmolality Calcium Magnesium Total Creatine Kinase CK-MB (CK-2) Troponin I Triglycerides Cholesterol LDL Cholesterol VLDL Cholesterol HDL Cholesterol Heart Disease Risk Ratio 02/24/17 02/24/17 02/24/17 14:00 16:13 16:37 WBC RBC Hgb Hct MCV MCH MCHC RDW Plt Count MPV Neut % (Auto) Lymph % (Auto) Blaine % (Auto) Eos % (Auto) Baso % (Auto) Neut # (Auto) Lymph # (Auto) Blaine # (Auto) Eos # (Auto) Baso # (Auto) Immature Gran % Nucleated RBC % Immature Gran # Nucleated RBCs # Immature Plt Fraction INR PT Patient/Control Mix Sodium Potassium Chloride Carbon Dioxide Anion Gap BUN Creatinine GFR Calculation BUN/Creatinine Ratio Glucose POC Glucose 199 H 99 Calculated Osmolality Calcium Magnesium Total Creatine Kinase 41 D CK-MB (CK-2) 3.4 Troponin I 0.076 H Triglycerides Cholesterol LDL Cholesterol VLDL Cholesterol HDL Cholesterol Heart Disease Risk Ratio 02/24/17 02/24/17 02/25/17 20:32 23:31 05:42 WBC RBC Hgb Hct MCV MCH MCHC RDW Plt Count MPV Neut % (Auto) Lymph % (Auto) Blaine % (Auto) Eos % (Auto) Baso % (Auto) Neut # (Auto) Lymph # (Auto) Blaine # (Auto) Eos # (Auto) Baso # (Auto) Immature Gran % Nucleated RBC % Immature Gran # Nucleated RBCs # Immature Plt Fraction INR PT Patient/Control Mix Sodium 141 Potassium 3.9 Chloride 107 Carbon Dioxide 26 Anion Gap 11.9 BUN 19 H D Creatinine 0.80 GFR Calculation 97 BUN/Creatinine Ratio 23.00 H Glucose 118 H POC Glucose 144 H Calculated Osmolality 283.3 Calcium 9.0 Magnesium Total Creatine Kinase 38 L 38 L CK-MB (CK-2) 2.9 3.5 Troponin I 0.109 H D 0.129 H Triglycerides Cholesterol LDL Cholesterol VLDL Cholesterol HDL Cholesterol Heart Disease Risk Ratio 02/25/17 02/25/17 02/25/17 05:42 05:42 07:18 WBC 10.9 RBC 4.74 Hgb 14.8 Hct 43.3 MCV 91.4 MCH 31 MCHC 34.2 RDW 14.4 Plt Count 232 MPV 12.0 Neut % (Auto) 56.9 Lymph % (Auto) 25.5 Blaine % (Auto) 12.2 Eos % (Auto) 4.4 Baso % (Auto) 0.4 Neut # (Auto) 6.2 Lymph # (Auto) 2.8 Blaine # (Auto) 1.3 H Eos # (Auto) 0.5 Baso # (Auto) 0.0 Immature Gran % 0.6 Nucleated RBC % 0.0 Immature Gran # 0.07 Nucleated RBCs # 0.00 Immature Plt Fraction 0.0 INR PT Patient/Control Mix Sodium 141 Potassium 4.0 Chloride 107 Carbon Dioxide 24 Anion Gap 14.0 BUN 20 H Creatinine 0.80 GFR Calculation 97 BUN/Creatinine Ratio 25.00 H Glucose 114 H POC Glucose 130 H Calculated Osmolality 284.3 Calcium 9.4 Magnesium 2.0 Total Creatine Kinase CK-MB (CK-2) Troponin I Triglycerides Cholesterol LDL Cholesterol VLDL Cholesterol HDL Cholesterol Heart Disease Risk Ratio - EKG EKG results: interpreted by me EKG shows: bradycardia Specialty Discharge - Follow Up or Referrals
[2017-02-25] MEDS: FUROSEMIDE 40 MG TABLET PO SCH ×2 (08:49→21:22)
[2017-02-25] MEDS: TAMSULOSIN 0.4 MG CAPSULE PO SCH (08:49)
[2017-02-25] MEDS: CHOLECALCIFEROL 1,000 UNIT TABLET PO SCH (08:49)
[2017-02-25] MEDS: POTASSIUM CHLORIDE 10 MEQ TABLET PO SCH ×2 (08:49→21:23)
[2017-02-25] MEDS: GABAPENTIN 300 MG CAPSULE PO SCH ×3 (08:49→21:22)
[2017-02-25] MEDS: TICAGRELOR 90 MG TABLET PO SCH ×2 (08:49→21:30)
[2017-02-25] MEDS: tiZANidine 4 MG TABLET PO SCH ×4 (08:50→21:22)
[2017-02-25] MEDS: PANTOPRAZOLE 40 MG TABLET PO SCH (08:50)
[2017-02-25] MEDS: BISACODYL 5 MG TABLET PO SCH ×2 (08:50→21:22)
[2017-02-25] MEDS: ISOSORBIDE MONONITRATE 60 MG TABLET PO SCH (08:50)
[2017-02-25] MEDS ORDERED: ASPIRIN EC 325 MG TABLET PO SCH (09:00)
[2017-02-25] MEDS: INSULIN NPH/REGULAR 70/30 100 UNIT/ML SUBCUT SCH ×2 (09:03→21:24)
[2017-02-25] MEDS: ASPIRIN EC 81 MG TABLET PO SCH (09:03)
[2017-02-25] MEDS: INSULIN REGULAR 100 UNIT/ML SUBCUT SCH ×4 (09:06→21:23)
[2017-02-25] MEDS: CAPTOPRIL 6.25 MG TABLET PO SCH ×2 (19:05→21:22)
[2017-02-25] MEDS: busPIRone 10 MG TABLET PO SCH (21:22)
[2017-02-25] MEDS: DULoxetine 20 MG CAPSULE PO SCH (21:22)
[2017-02-25] MEDS: SIMVASTATIN 10 MG TABLET PO SCH (21:23)
[2017-02-26 05:06] LABS: Basophils % 0.3 % (0.0-0.8); Eosinophils # 0.6 10*3/uL (0.0-0.87); Hematocrit 45.6 VOL% (42.0-52.0); Immature Granulocytes % 0.5 %; Immature Granulocytes Absolute 0.06 #; Lymphocytes # 2.7 10*3/uL (1.4-4.0); Lymphocytes % 21.3 % (21.2-54.2); Mean Corpuscular HGB Conc 35.1 GM/DL (32-36); Mean Corpuscular Hemoglobin 31 PG (27-34); Mean Corpuscular Volume 89.4 FL (87-102); Mean Platelet Volume 11.4 FL (9.6-12.0); Monocytes # 1.5 10*3/uL (0.11-0.8); Monocytes % 12.1 % (1.7-12.7); Neutrophils # 7.7 10*3/uL (1.4-7.4); Neutrophils % 60.8 % (38.7-73.9); Platelet Count 276 T/CUMM (130-400); White Blood Count 12.7 T/CUMM (4-12)
[2017-02-26 05:37] LABS: Calcium 9.3 MG/DL (8.5-10.1); Magnesium 2.1 MG/DL (1.8-2.4); Potassium 3.2 MMOL/L (3.5-5.1)
[2017-02-26] MEDS ORDERED: POTASSIUM CHLORIDE 20 MEQ PACK PO ONE (07:29)
--- NOTE | 2017-02-26 07:31 | Cardiology Progress Note ---
Assessment and Plan (1) CAD (coronary artery disease) Status: Chronic Assessment and plan: SEE PLAN OF CARE LISTED BELOW Current Visit: Yes (2) Hx of CABG Status: Chronic Assessment and plan: SEE PLAN OF CARE LISTED BELOW Current Visit: Yes (3) Elevated troponin Status: Acute Assessment and plan: SEE PLAN OF CARE LISTED BELOW Current Visit: Yes (4) Chest pain Status: Acute Assessment and plan: SEE PLAN OF CARE LISTED BELOW Current Visit: Yes (5) History of CVA (cerebrovascular accident) Status: Chronic Assessment and plan: SEE PLAN OF CARE LISTED BELOW Current Visit: No (6) Debility, unspecified Status: Chronic Assessment and plan: SEE PLAN OF CARE LISTED BELOW Current Visit: No (7) CAD (coronary artery disease) Status: Chronic Current Visit: No (8) Hypertension Status: Chronic Assessment and plan: SEE PLAN OF CARE LISTED BELOW Current Visit: No (9) Dyslipidemia Status: Chronic Assessment and plan: SEE PLAN OF CARE LISTED BELOW Current Visit: No (10) Diabetes Status: Chronic Assessment and plan: SEE PLAN OF CARE LISTED BELOW Current Visit: No (11) Bradycardia Status: Acute Assessment and plan: SEE PLAN OF CARE LISTED BELOW Current Visit: Yes (12) Hypotension Status: Acute Assessment and plan: SEE PLAN OF CARE LISTED BELOW Current Visit: Yes (13) CHF (congestive heart failure), NYHA class III Status: Acute Assessment and plan: SEE PLAN OF CARE LISTED BELOW Current Visit: Yes Qualifiers: Congestive heart failure type: combined Congestive heart failure chronicity : acute Qualified Code(s): I50.41 - Acute combined systolic (congestive) and diastolic (congestive) heart failure (14) Ischemic cardiomyopathy Status: Acute Assessment and plan: SEE PLAN OF CARE LISTED BELOW Current Visit: Yes (15) Non-STEMI (non-ST elevated myocardial infarction) Status: Acute Assessment and plan: SEE PLAN OF CARE LISTED BELOW Current Visit: Yes Cardiology - PN: Subj Interval history: MEDIA PRODUCTION SUPPORT MANAGER: DR. MCNULTY PCP: DR. TERRENCE GONZALEZ Patient is being seen in the CCU. SUMMARY: Mr. Roy, 77WM, has a history of known coronary artery disease (S/ P CABG 2006 in [place], [place]), hypertension, dyslipidemia, diabetes, CVA, bradycardia, COPD, general debility from 3 prior strokes. Admitted February 24, 2017 with complaints of chest pain, shortness of breath, hypotensive and bradycardic, troponin mildly elevated. He underwent heart catheterization, performed by Dr. Wyman with the following noted: Impression: 1. Approximately moderately reduced LV systolic function with ejection fraction estimated 35% with moderate to large area of anterior akinesis 2. Right dominant system 3. Three-vessel coronary artery disease as described above including but not limited to: A. Proximal LAD occlusion B. 60% tubular proximal circumflex stenosis with 60% ostial OM 3 stenosis ( only reasonably large obtuse marginal) C. 99% mid RCA stenosis 4. Grafts: A. COHEN to LAD is widely patent with normal flow and inserts very distally B. Occluded vein graft at the ostium (presumably went to the circumflex system and reportedly was previously occluded) C. Patent vein graft to distal RCA with tandem distal stenoses near the anastomosis (80% to 99% respectively) 5. Status post angioplasty and stenting of tandem distal vein graft lesions near the anastomosis of the vein graft RCA with 2.25 x 28 Gunnar stent with excellent result. FEBRUARY 25, 2017: Tolerated the procedure well without complication. Overnight , Mr. Roy is feeling better. Denies chest pain, heaviness or tightness. Breathing has improved. He has diuresed nicely overnight, lost 3 kg since admission. Labs are stable. Right groin is soft, free of hematoma or bruit. Patient remains bradycardic however, beta-blockade has now been healed. This is a sinus bradycardia and he seems to be asymptomatic. Heart rate this morning 52. Patient is interested in discharge home. He may benefit from an additional night in the hospital as we continue with diuresis. However, I will round back this afternoon and consider him a possibility of discharge home this afternoon depending on his progress through the day. Will further discuss with Dr. rodriguez and await additional recommendations. Patient will need outpatient echocardiogram at discharge as his EF is now 35% (previously noted to be 55% 2016). I will go ahead and arrange for outpatient echo to be performed in the next 4-6 weeks at [facility]. FEBRUARY 26, 2017: Overnight, patient is doing relatively well. Denies chest pain , heaviness or tightness. Blood pressure somewhat elevated will adjust medications accordingly for better blood pressure control. This morning, he has experienced a fast rhythm 140 bpm. EKG is pending. Beta-blockade was discontinued on admission due to bradycardia (heart rate 38-50). Depending on the rhythm and its recurrence may be a candidate for amiodarone. However, he may be entering the tachybradycardia syndrome/sick sinus syndrome and may eventually need a pacemaker. Will replace his potassium this morning and monitor BMP, magnesium daily. Transition to telemetry overnight and continue to follow his rhythm. I have consulted case management to help with discharge planning. I feel like he may have little help with his medication administration at home. He will need help setting up his medications to ensure he is getting accurate meds at home. He will be given a Brilinta prescription card at discharge as well. Blood pressure suboptimally controlled and I will increase his captopril to 12.5 mg orally 3 times daily as opposed starting at 9 AM. Will further discuss with Dr. Farooq and await additional recommendations. ASSESSMENT/PLAN: 1. NSTEMI - now status post revascularization. Steffi current plan of care 2. KNOWN CAD - see heart catheterization report listed above. Continue Aspirin, Brilinta, lipid-lowering agent. Increasing SUGAR 3. HYPOTENSION - resolved. 4. DYSLIPIDEMIA -LDL 50. He is at goal. Continue lipid-lowering agent 5. BRADYCARDIA - sinus bradycardia. Seems to be stable, he is asymptomatic. Continue to hold Metoprolol and Clonidine. 6. ACUTE CHF - secondary to systolic dysfunction (EF 35%) and diastolic dysfunction, NYHA Class II-III. Well compensated 8. DEBILITY - continue current plan of care 9. HISTORY OF CVA - taking Aspirin for history of 3 prior CVAs leaving him somewhat physically debilitated 10. DIABETES - hold Metformin. Sliding scale insulin. 11. ICM - EF 35%. 12. TACKY ARRHYTHMIA -did not see the actual rhythm today but was told his heart rate was 140s-150s. See above discussion 13. HYPERTENSION -increasing captopril for better blood pressure control. Exam (Progress Note) - Constitutional Vitals: Period Temp Pulse Resp BP Sys/Luna Pulse Ox Last 24 Hr 97 F-98.9 F 46-67 12-25 100-180/45-85 94-99 Exam: General: [Appears well with no apparent distress.] [Pleasant and cooperative. ] [Appears comfortable.] HEENT: [PERRL, normocephalic, atraumatic. Mucous membranes moist. No jaundice noted. Conjunctiva moist and clear, sclerae anicteric] Neck: No JVD/HJR, no thyromegaly or lymphadenopathy noted. No carotid bruit appreciated Cardiac: [Regular rate and rhythm.] [No murmur rub or gallop.] Lungs: [Clear to auscultation without accessory muscle use to assist the respiratory pattern.] Not requiring oxygen Abdomen: Soft, bowel sounds normoactive. Nontender and nondistended. No abdominal bruit or thrill noted. No masses noted. Musculoskeletal: No fluid collection. Decreased range of motion is noted. Extremities: Right groin soft, free of hematoma or bruit. No clubbing, cyanosis noted. [ No edema noted.] Upper extremity pulses 2+. Lower extremity pulses 2+. Capillary refill less than 3 seconds. Skin: No unusual lesions or rashes. No skin breakdown appreciated. Neuro: Awake, alert and oriented 3. All extremities with chronic weakness. No essential tremor is appreciated. Result/EKG - Labs CBC & BMP: 02/26/17 04:55 02/26/17 04:55 Lab Results: I have reviewed the past 24 hour labs Labs: Laboratory Results - last 24 hr 02/25/17 02/25/17 02/25/17 11:25 16:09 20:37 WBC RBC Hgb Hct MCV MCH MCHC RDW Plt Count MPV Neut % (Auto) Lymph % (Auto) [place] % (Auto) Eos % (Auto) Baso % (Auto) Neut # (Auto) Lymph # (Auto) [place] # (Auto) Eos # (Auto) Baso # (Auto) Immature Gran % Nucleated RBC % Immature Gran # Nucleated RBCs # Immature Plt Fraction Sodium Potassium Chloride Carbon Dioxide Anion Gap BUN Creatinine GFR Calculation BUN/Creatinine Ratio Glucose POC Glucose 206 H 119 H 230 H Calculated Osmolality Calcium Magnesium 02/26/17 02/26/17 02/26/17 04:55 04:55 07:13 WBC 12.7 H RBC 5.10 Hgb 16.0 Hct 45.6 MCV 89.4 MCH 31 MCHC 35.1 RDW 14.0 Plt Count 276 MPV 11.4 Neut % (Auto) 60.8 Lymph % (Auto) 21.3 [place] % (Auto) 12.1 Eos % (Auto) 5.0 Baso % (Auto) 0.3 Neut # (Auto) 7.7 H Lymph # (Auto) 2.7 [place] # (Auto) 1.5 H Eos # (Auto) 0.6 Baso # (Auto) 0.0 Immature Gran % 0.5 Nucleated RBC % 0.0 Immature Gran # 0.06 Nucleated RBCs # 0.00 Immature Plt Fraction 0.0 Sodium 143 Potassium 3.2 L Chloride 108 H Carbon Dioxide 26 Anion Gap 12.2 BUN 13 Creatinine 0.90 GFR Calculation 93 BUN/Creatinine Ratio 14.00 Glucose 87 POC Glucose 85 Calculated Osmolality 283.0 Calcium 9.3 Magnesium 2.1 - EKG EKG results: interpreted by me EKG shows: bradycardia Specialty Discharge - Follow Up or Referrals - Speciality Discharge Instructions Cardiology Instructions: Brilinta prescription card at discharge
--- NOTE | 2017-02-26 07:33 | EKG Report ---
Stationary ECG Study [facility] Test Date: 02/26/2017 7:30:26 AM Pat Name: MAURILIO PHAN Department: Room: 120 Gender: M Rn Iv Therapy: MIRNA : 1940 Requested by: Tomasa Farooq Order Number: [id number] Reading MD: TOMASA FAROOQ Intervals [place] Rate: 57 P: 58 OR: 156 QRS: -13 QRSD: 90 T: 77 QT: 513 QTc: 506 Interpretive Statements SINUS RHYTHM POSSIBLE LEFT ATRIAL ENLARGEMENT SEPTAL MYOCARDIAL INFARCTION, OF INDETERMINATE AGE MODERATE T-WAVE ABNORMALITY, CONSIDER ANTERIOR ISCHEMIA Electronically Signed On 02-26-17 07:56:26 CDT by TOMASA FAROOQ [email or web address]
[2017-02-26] MEDS: CHOLECALCIFEROL 1,000 UNIT TABLET PO SCH (08:16)
[2017-02-26] MEDS: PANTOPRAZOLE 40 MG TABLET PO SCH (08:16)
[2017-02-26] MEDS: TAMSULOSIN 0.4 MG CAPSULE PO SCH (08:16)
[2017-02-26] MEDS: tiZANidine 4 MG TABLET PO SCH (08:16)
[2017-02-26] MEDS: GABAPENTIN 300 MG CAPSULE PO SCH (08:16)
[2017-02-26] MEDS: CAPTOPRIL 6.25 MG TABLET PO SCH (08:16)
[2017-02-26] MEDS: BISACODYL 5 MG TABLET PO SCH (08:16)
[2017-02-26] MEDS: FUROSEMIDE 40 MG TABLET PO SCH (08:16)
[2017-02-26] MEDS: ISOSORBIDE MONONITRATE 60 MG TABLET PO SCH (08:17)
[2017-02-26] MEDS: ASPIRIN EC 81 MG TABLET PO SCH (08:17)
[2017-02-26] MEDS: TICAGRELOR 90 MG TABLET PO SCH (08:17)
[2017-02-26] MEDS: INSULIN NPH/REGULAR 70/30 100 UNIT/ML SUBCUT SCH (08:22)
[2017-02-26] MEDS: POTASSIUM CHLORIDE 10 MEQ TABLET PO SCH (08:22)
[2017-02-26] MEDS: INSULIN REGULAR 100 UNIT/ML SUBCUT SCH (08:25)
[2017-02-26] MEDS ORDERED: CAPTOPRIL 6.25 MG TABLET PO SCH (09:00)
--- NOTE | 2017-02-26 10:04 | Discharge Summary ---
Hospital Course - Hospital Course Hospital Course: PRODUCTION CONSULTANT: DR. MCNULTY PCP: DR. TERRENCE GONZALEZ Patient is being seen in the CCU. SUMMARY: Mr. Roy, 77WM, has a history of known coronary artery disease (S/ P CABG 2006 in [place], [place]), hypertension, dyslipidemia, diabetes, CVA, bradycardia, COPD, general debility from 3 prior strokes. Admitted February 24, 2017 with complaints of chest pain, shortness of breath, hypotensive and bradycardic, troponin mildly elevated. He underwent heart catheterization, performed by Dr. Wyman with the following noted: Impression: 1. Approximately moderately reduced LV systolic function with ejection fraction estimated 35% with moderate to large area of anterior akinesis 2. Right dominant system 3. Three-vessel coronary artery disease as described above including but not limited to: A. Proximal LAD occlusion B. 60% tubular proximal circumflex stenosis with 60% ostial OM 3 stenosis ( only reasonably large obtuse marginal) C. 99% mid RCA stenosis 4. Grafts: A. COHEN to LAD is widely patent with normal flow and inserts very distally B. Occluded vein graft at the ostium (presumably went to the circumflex system and reportedly was previously occluded) C. Patent vein graft to distal RCA with tandem distal stenoses near the anastomosis (80% to 99% respectively) 5. Status post angioplasty and stenting of tandem distal vein graft lesions near the anastomosis of the vein graft RCA with 2.25 x 28 Gunnar stent with excellent result. FEBRUARY 25, 2017: Tolerated the procedure well without complication. Overnight , Mr. Roy is feeling better. Denies chest pain, heaviness or tightness. Breathing has improved. He has diuresed nicely overnight, lost 3 kg since admission. Labs are stable. Right groin is soft, free of hematoma or bruit. Patient remains bradycardic however, beta-blockade has now been healed. This is a sinus bradycardia and he seems to be asymptomatic. Heart rate this morning 52. Patient is interested in discharge home. He may benefit from an additional night in the hospital as we continue with diuresis. However, I will round back this afternoon and consider him a possibility of discharge home this afternoon depending on his progress through the day. Will further discuss with Dr. rodriguez and await additional recommendations. Patient will need outpatient echocardiogram at discharge as his EF is now 35% (previously noted to be 55% 2016). I will go ahead and arrange for outpatient echo to be performed in the next 4-6 weeks at [facility]. FEBRUARY 26, 2017: Overnight, patient is doing relatively well. Denies chest pain , heaviness or tightness. Blood pressure somewhat elevated overnight. Blood pressure suboptimally controlled and I will increase his Captopril to 12.5 mg orally 3 times daily. This morning, patient had a brief (less than 1 minute) run of SVT from which she was asymptomatic. Beta-blockade was discontinued on admission due to bradycardia (heart rate 38-50). I have discussed with Dr. Farooq and we will add Coreg 3.125 mg orally twice daily, a very low-dose beta-ny. Will replace his potassium this morning and monitor BMP, magnesium daily. Patient would like to be discharged home. He will be given a follow-up appointment with Dr. Mcnulty in approximately 2 weeks with EKG, BMP, magnesium, CBC. I have consulted case management to help with discharge planning. I feel like he may have little help with his medication administration at home. He will need help setting up his medications routinely to ensure he is getting accurate meds at home. He will be given a Brilinta prescription card at discharge as well. Having felt is met maximal medical therapy, patient is being discharged home in stable condition. Cardiac discharge medications include the following: Aspirin 81 mg orally daily Brilinta 90 mg orally twice daily. Patient will be given a prescription card at discharge Coreg 3.125 mill grams orally twice daily Lasix 40mg orally daily Lasix 40 mg orally twice daily Isosorbide mononitrate 60 mg orally daily Simvastatin 5 mg orally each evening Patient will resume his other noncardiac, preadmission medications - Time spent with patient Time with patient DS: Greater than 30 minutes Diagnosis - Discharge Diagnosis (1) CAD (coronary artery disease) Status: Chronic (2) Hx of CABG Status: Chronic (3) Elevated troponin Status: Acute (4) Chest pain Status: Resolved (5) History of CVA (cerebrovascular accident) Status: Chronic (6) Debility, unspecified Status: Chronic (7) CAD (coronary artery disease) Status: Chronic (8) Hypertension Status: Chronic (9) Dyslipidemia Status: Chronic (10) Diabetes Status: Chronic (11) Bradycardia Status: Chronic (12) Hypotension Status: Resolved (13) CHF (congestive heart failure), NYHA class III Status: Resolved (14) Ischemic cardiomyopathy Status: Resolved (15) Non-STEMI (non-ST elevated myocardial infarction) Status: Resolved Specialty Discharge - Follow Up or Referrals Follow up with: Taylor Mcnulty DO [Physician] - 2 Weeks (EKG, BMP, magnesium, CBC) Discharge Plan - Discharge Data Disposition: Disch To Home/Self Care Condition at Discharge: Stable Discharge Diet: heart healthy Activity: other (Post cath expectations) Hygiene: other (Post cath expectations) Weight Bearing at Discharge: other (Post cath expectations) Driving: other (No driving) Contact your physician if you experience:: fever over 101, Difficulty voiding, Redness or swelling, Nausea/Vomiting, Shortness of breath, Bleeding, pain uncontrolled by pain medications - Discharge Medications New Aspirin EC Tab 81 mg PO DAILY #30 tablet Carvedilol [Coreg] 3.125 mg PO BID #60 tablet Ticagrelor [Brilinta] 90 mg PO BID #60 tablet Continue Gabapentin 300 mg PO TID Isosorbide Mononitrate [Isosorbide Mononitrate ER] 60 mg PO DAILY DULoxetine [Cymbalta] 20 mg PO BEDTIME Tamsulosin [Flomax] 0.4 mg PO DAILY Simvastatin 5 mg PO BEDTIME Omeprazole [Prilosec] 20 mg PO DAILY Melatonin 5 mg PO BEDTIME busPIRone [Buspar] 10 mg PO BEDTIME Lisinopril [Prinivil] 40 mg PO DAILY tablet HYDROcodone/ACETAMIN 10-325 [[place] 10-325] 1 tablet PO Q8H PRN #30 tablet PRN Reason: Pain Insulin NPH Hum/Reg Insulin Hm [NovoLIN 70/30] 25 unit SUBCUT BID #100 ml clonazePAM [Clonazepam] 1 mg PO BID #60 tablet tiZANidine [Zanaflex] 4 mg PO QID Cholecalciferol [Vitamin D3] 1,000 unit PO DAILY Potassium Chloride 10 meq PO BID Bisacodyl Tab [Dulcolax Tab] 5 mg PO DAILY Furosemide 40 mg PO BID Bisacodyl Tab [Dulcolax Tab] 5 mg PO BEDTIME Discontinued Clopidogrel [Plavix] 75 mg PO DAILY amLODIPine [Norvasc] 5 mg PO DAILY tablet Metoprolol Tartrate 25 mg PO DAILY Meloxicam 7.5 mg PO DAILY - Follow Up or Referral - Forms/Instructions Instructions: Myocardial Infarction (GEN), Coronary Artery Disease (GEN), Left Heart Catheterization (DC), Heart Healthy Diet (GEN), Coronary Intravascular Stent Placement (DC) Additional Discharge Instructions: Please give Brilinta prescription card at discharge. I have asked case management to get home health to help with arranging meds for administration routinely Exam - Constitutional Vitals: Period Temp Pulse Resp BP Sys/Luna Pulse Ox Last 24 Hr 97 F-98.9 F 46-67 12-25 100-172/45-78 94-99 Exam: General: [Appears well with no apparent distress.] [Pleasant and cooperative. ] [Appears comfortable.] HEENT: [PERRL, normocephalic, atraumatic. Mucous membranes moist. No jaundice noted. Conjunctiva moist and clear, sclerae anicteric] Neck: No JVD/HJR, no thyromegaly or lymphadenopathy noted. No carotid bruit appreciated Cardiac: [Regular rate and rhythm.] [No murmur rub or gallop.] Lungs: [Clear to auscultation without accessory muscle use to assist the respiratory pattern.] Not requiring oxygen Abdomen: Soft, bowel sounds normoactive. Nontender and nondistended. No abdominal bruit or thrill noted. No masses noted. Musculoskeletal: No fluid collection. Decreased range of motion is noted. Extremities: Right groin soft, free of hematoma or bruit. No clubbing, cyanosis noted. [ No edema noted.] Upper extremity pulses 2+. Lower extremity pulses 2+. Capillary refill less than 3 seconds. Skin: No unusual lesions or rashes. No skin breakdown appreciated. Neuro: Awake, alert and oriented 3. All extremities with chronic weakness. No essential tremor is appreciated. Discharge Results Procedures and tests throughout hospitalization: Pending Orders 02/27/17 04:00 BMP w/ Mg [Basic Metabolic Panel w/Mg] IN AM CBC [Comp Blood Count Auto Diff] IN AM CMP [Comprehensive Metabolic Panel] IN AM 02/28/17 04:00 BMP w/ Mg [Basic Metabolic Panel w/Mg] IN AM CBC [Comp Blood Count Auto Diff] IN AM Labs on day of discharge: Labs from last 24 hours 02/26/17 02/26/17 02/26/17 07:13 04:55 04:55 WBC 12.7 H RBC 5.10 Hgb 16.0 Hct 45.6 MCV 89.4 MCH 31 MCHC 35.1 RDW 14.0 Plt Count 276 MPV 11.4 Neut % (Auto) 60.8 Lymph % (Auto) 21.3 [place] % (Auto) 12.1 Eos % (Auto) 5.0 Baso % (Auto) 0.3 Neut # (Auto) 7.7 H Lymph # (Auto) 2.7 [place] # (Auto) 1.5 H Eos # (Auto) 0.6 Baso # (Auto) 0.0 Immature Gran % 0.5 Nucleated RBC % 0.0 Immature Gran # 0.06 Nucleated RBCs # 0.00 Immature Plt Fraction 0.0 Sodium 143 Potassium 3.2 L Chloride 108 H Carbon Dioxide 26 Anion Gap 12.2 BUN 13 Creatinine 0.90 GFR Calculation 93 BUN/Creatinine Ratio 14.00 Glucose 87 POC Glucose 85 Calculated Osmolality 283.0 Calcium 9.3 Magnesium 2.1 02/25/17 02/25/17 02/25/17 20:37 16:09 11:25 WBC RBC Hgb Hct MCV MCH MCHC RDW Plt Count MPV Neut % (Auto) Lymph % (Auto) [place] % (Auto) Eos % (Auto) Baso % (Auto) Neut # (Auto) Lymph # (Auto) [place] # (Auto) Eos # (Auto) Baso # (Auto) Immature Gran % Nucleated RBC % Immature Gran # Nucleated RBCs # Immature Plt Fraction Sodium Potassium Chloride Carbon Dioxide Anion Gap BUN Creatinine GFR Calculation BUN/Creatinine Ratio Glucose POC Glucose 230 H 119 H 206 H Calculated Osmolality Calcium Magnesium - Imaging and Cardiology Cardiology Procedure: report reviewed by me Procedure: Chest x-ray: report reviewed by mn DS: Provider Date of admission: 02/24/17 02:47 Primary care physician: Jovi Chandler Attending physician on admission: Taylor Mcnulty DO Consults: 02/24/17 15:18 Consult to Cardiac Rehabilitation [CONS] Routine Reason for Cardiac Rehabilitation: Appt Out Pt Cardiac Rehab Consult Comment: ACS; h/o cabg; stent 02/24/17 02/26/17 08:34 Consult to Case Mgmt/Social Srvs [CONS] Routine Reason for Case Mgmt/Social Srvs: Discharge Planning Consult Comment: Assist with correct medication admin at home and assess for DC needs Discharging clinician: Thu Dickens NP Expected date of discharge: 02/26/17
[2017-02-26] MEDS ORDERED: CARVEDILOL 3.125 MG TABLET PO SCH (10:30)
[2017-02-26 12:06] VITALS: BP 150/81
== END 2017-02-26 12:00 | disposition home health service (06) | DRG 246 ==
LOC: EDUNIT# → EDBD → N.ED 02:09 → N.EDINP 02:47 → N.CC 03:19
PROVIDERS: ADMIT Internal Medicine Cardiovascular Disease; ATTEND Internal Medicine Cardiovascular Disease

== ENCOUNTER 2017-03-06 00:11 | Inpatient (IN) ==
--- NOTE | 2017-03-06 00:59 | Emergency Department Note ---
Arrival - Arrival Chief Complaint: Chest Pain Stated Complaint: tachycardia ED Nursing Triage Note: CHEST PAIN, SOB, HR OF 154 AT HOME. Mode of Arrival: Stretcher Time Seen by Provider: 03/06/17 00:42 - History of Present Illness HPI Narrative: This is a 77-year-old white male with a history of coronary artery disease status post coronary artery bypass surgery in 2006, hypertension, congestive heart failure from ischemic cardiomyopathy, hyperlipidemia, type 2 diabetes, 3 previous strokes, COPD, supraventricular tachycardia who was admitted to the hospital February 24, 2017 with chest pain shortness of breath hypotension and bradycardia with a mildly elevated troponin who underwent cardiac catheterization which showed COHEN to the LAD to be patent, occluded saphenous vein graft to the ostium, patent saphenous vein graft to the distal RCA with stenting of the distal RCA whose measured ejection fraction was 35% who was discharged on Aspirin 81 mg orally daily, Brilinta 90 mg orally twice daily, Coreg 3.125 mill grams orally twice daily, Lasix 40mg orally daily, Isosorbide mononitrate 60 mg orally daily, Simvastatin 5 mg orally each evening he developed palpitations at approximately 9 PM and was noted to have a heart rate of 154 bpm associated with chest pain for which he called an ambulance and was given nitroglycerin intravenous fluids with resultant resolution of his supraventricular tachycardia and chest pain symptoms. Allergies/Adverse Reactions: Allergies Allergy/AdvReac Type Severity Reaction Status Date / Time No Known Allergies Allergy Unverified 05/05/16 01:30 Home Medications: Home Medications Medication Instructions Recorded Confirmed Type DULoxetine [Cymbalta] 20 mg PO BEDTIME 05/05/16 02/24/17 History Gabapentin 300 mg PO TID 05/05/16 02/24/17 History Isosorbide Mononitrate [Isosorbide 60 mg PO DAILY 05/05/16 02/24/17 History Mononitrate ER] Melatonin 5 mg PO BEDTIME 05/05/16 02/24/17 History Omeprazole [Prilosec] 20 mg PO DAILY 05/05/16 02/24/17 History Simvastatin 5 mg PO BEDTIME 05/05/16 02/24/17 History Tamsulosin [Flomax] 0.4 mg PO DAILY 05/05/16 02/24/17 History busPIRone [Buspar] 10 mg PO BEDTIME 05/05/16 02/24/17 History HYDROcodone/ACETAMIN 10-325 [[place] 1 tablet PO Q8H PRN #30 tablet 05/07/1602/24 Rx 10-325] Insulin NPH Hum/Reg Insulin Hm 25 unit SUBCUT BID #100 ml 05/07/16 02/24/17 Rx [NovoLIN 70/30] Lisinopril [Prinivil] 40 mg PO DAILY tablet 05/07/16 02/24/17 Rx clonazePAM [Clonazepam] 1 mg PO BID #60 tablet 05/07/16 02/24/17 Rx Bisacodyl Tab [Dulcolax Tab] 5 mg PO BEDTIME 02/24/17 02/24/17 History Bisacodyl Tab [Dulcolax Tab] 5 mg PO DAILY 02/24/17 02/24/17 History Cholecalciferol [Vitamin D3] 1,000 unit PO DAILY 02/24/17 02/24/17 History Furosemide 40 mg PO BID 02/24/17 02/24/17 History Potassium Chloride 10 meq PO BID 02/24/17 02/24/17 History tiZANidine [Zanaflex] 4 mg PO QID 02/24/17 02/24/17 History Aspirin EC Tab 81 mg PO DAILY #30 tablet 02/26/17 Rx Carvedilol [Coreg] 3.125 mg PO BID #60 tablet 02/26/17 Rx Ticagrelor [Brilinta] 90 mg PO BID #60 tablet 02/26/17 Rx Review of System - Review of System Constitutional: Absent: fever, night sweats, weakness Eyes: Absent: vision change Head/Ears/Nose/Throat: Absent: epistaxis, nasal drainage Respiratory: Absent: respiratory distress, wheezing Cardiovascular: Absent: dyspnea on exertion, orthopnea Gastrointestinal: Absent: diarrhea, constipation, hematemesis Genitourinary male: Absent: hematuria, discharge Skin: Absent: change in color, change in hair/nails Neurological: Absent: numbness, paresthesias Psychiatric: Absent: suicidal thoughts, homicidal thoughts Endocrine: Absent: heat intolerance, polydipsia Hematological/Lymphatic: Absent: easy bruising, lymphadenopathy Allergic/Immunologic: Absent: urticaria, itchy eyes Medical,Surgical,& Family Hx - Medical History Cardio: History of: CHF, CAD, Hypertension Neurology: History of: Cerebrovascular Accident (X3) Endocrine: History of: Diabetes Mellitus (IDDM), Dyslipidemia Respiratory: History of: COPD - Surgical History Thoracic Surgeries: Surgical HX of;: Lobectomy (pt states left lower lobe removed) Abdominal Surgeries: Surgical HX of: Abdominal Surgery, Cholecystectomy, Hernia Repair - Social History Smoking Status: Never smoker Frequency of Alcohol Use: None Type of Drug Use: None Exam Vital Signs: Vital Signs Temperature 98 F 03/06/17 00:14 Pulse Rate 58 L 03/06/17 00:26 Respiratory Rate 20 03/06/17 00:26 Blood Pressure 85/55 03/06/17 00:14 O2 Sat by Pulse Oximetry 98 03/06/17 01:02 - General Exam limited due to: ALOC - Head Head exam: Present: atraumatic, normocephalic - Eye Eye exam: Present: normal appearance, PERRL, EOMI - ENT ENT exam: Present: normal exam, normal oropharynx - Neck Neck exam: Present: normal inspection, full ROM - Chest Chest inspection: Present: normal inspection, symmetric chest wall rise - Respiratory Respiratory exam: Present: normal lung sounds bilaterally - Cardiovascular Cardiovascular exam: Present: regular rate, normal rhythm - Abdominal Exam Abdominal exam: Present: soft, normal bowel sounds - Extremities Exam Extremities exam: Present: normal inspection, full ROM - Back Exam Back exam: Present: normal inspection, full ROM - Neurological Exam Neurological exam: Present: alert, oriented X3, CN II-XII intact - Psychiatric Psychiatric exam: Present: normal affect, normal mood - Skin Skin exam: Present: warm, dry Course Course Narrative: The patient's troponin was elevated at 0.6 which is higher than 10 days ago when he had his cardiac catheterization. Electrocardiogram does not show definite ST segment elevated AR. The patient's chest discomfort is now resolved. The supraventricular tachycardia which triggered his chest pain is now resolved. The case was discussed with the [employer] club travel counselor who recommended that he be admitted to the hospital for further evaluation and serial studies. The orders for admission were written. Disposition Clinical Impression: Chest pain, SVT (supraventricular tachycardia)
[2017-03-06] MEDS ORDERED: MAGNESIUM SULF RIDER 4 GM in PREMIX 1 EACH IV PRN (01:59)
[2017-03-06] MEDS ORDERED: MAGNESIUM SULF RIDER 2 GM in PREMIX 1 EACH IV PRN (01:59)
[2017-03-06] MEDS ORDERED: ONDANSETRON 4 MG/2 ML VIAL IV PRN (01:59)
[2017-03-06] MEDS ORDERED: ACETAMINOPHEN 325 MG TABLET PO PRN (01:59)
--- NOTE | 2017-03-06 07:54 | EKG Report ---
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
--- NOTE | 2017-03-06 07:54 | EKG Report ---
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
--- NOTE | 2017-03-06 08:15 | XRay Report ---
Exam: XR chest 1V portable Date: 03/06/2017 1:01 AM Indication: Chest pain Comparison: 02/24/2017 Technical: AP Findings: External cardiac leads are present. Sternotomy wires are present. Low volume effusions are present with underlying COPD and fibrotic scarring with blebs and bulla changes scattered within the lung [place] bilaterally. Arthritic changes are present in the shoulders with degenerative change thoracic spine. No pneumothorax. Impression: 1. Underlying COPD and pulmonary fibrotic scarring with tiny low volume effusion suspected or pleural thickening 2. Previous sternotomy. PROCEDURE INTERPRETED AT [facility] DEPARTMENT OF RADIOLOGY Final Report Signed by: Dr. Dre Gil
[2017-03-06] MEDS ORDERED: DEXTROSE 50% 25 GM/50 ML SYRINGE IV PRN ×2 (08:46→15:00)
--- NOTE | 2017-03-06 08:47 | EKG Report ---
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
[2017-03-06] MEDS: PANTOPRAZOLE 40 MG TABLET PO SCH (13:32)
--- NOTE | 2017-03-06 14:53 | Cardiology History & Physical ---
Assessment and Plan - Time spent with patient Time spent with patient: Greater than 30 minutes (Examination, chart review, film review documentation and history and physical) (1) Generalized weakness Status: Acute Current Visit: No (2) History of CVA (cerebrovascular accident) Status: Chronic Current Visit: No (3) Dyslipidemia Status: Chronic Current Visit: No (4) Renal insufficiency Status: Resolved Current Visit: No (5) Ischemic cardiomyopathy Status: Resolved Current Visit: No (6) SVT (supraventricular tachycardia) Status: Acute Current Visit: Yes (7) Non-STEMI (non-ST elevated myocardial infarction) Status: Acute Assessment and plan: Patient will likely need left heart catheterization. It is very difficult anatomy. Will serial cardiac biomarkers and continue beta-blockers for now. Will resume his dual antiplatelet therapy. Current Visit: No History of Present Illness Chief complaint: Heart racing and chest pain History of present illness: Mr. Roy is a 77 year old male whom I have never seen before. The patient had history of coronary bypass grafting in 2006 at [facility] in [place]. He recently was admitted to the cardiology service and underwent PCI with GEOVANNI by Dr. Anson Wyman. He received a 2.25 x 28 mm Xience drug-eluting stent in the saphenous vein graft to the RCA at the anastomosis. I have reviewed those films. The patient also has high-grade diffuse circumflex disease and diffuse [place] disease in the right. He has a COHEN to the LAD. There was no documentation of vein graft to the left circumflex. His ejection fraction appears to be moderate to severely depressed with anterior hypokinesis. The overall ejection fraction is approximately 35%. The patient has diffuse disease throughout the RCA diffuse disease throughout the left circumflex including ostial circumflex and ostial first obtuse marginal that appeared to me to be moderate to high-grade. The patient has a saphenous vein graft to the RCA that had a 90% distal anastomosis stenosis but the entire graft is diffusely diseased. The area of the anastomosis was stented with a Xience stent as above. There is a relatively healthy COHEN to the LAD [place] LAD is 100 % occluded just after the takeoff of the left main and the mid to distal LAD is constituted from the in situ CHRISTAL to the LAD. This vessel is diffusely diseased as well. Mr. Roy was recently in the hospital received a stent he has done poorly at home he is fatigued short of breath he has had chest pain yesterday he had a tachypalpitations his heart rate per the ER was 154 bpm that responded to fluids. He was also given nitroglycerin. He has EKGs that looks to me last night so they represent ischemia in the anterior high lateral ventricular myocardium. These resolved. The patient has positive cardiac biomarkers and is pain-free at the time I saw him on telemetry earlier today. Home Medications Medication Instructions Recorded Confirmed Type DULoxetine [Cymbalta] 20 mg PO BEDTIME 05/05/16 03/06/17 History Gabapentin 300 mg PO TID 05/05/16 03/06/17 History Melatonin 5 mg PO BEDTIME 05/05/16 03/06/17 History Simvastatin 5 mg PO BEDTIME 05/05/16 03/06/17 History busPIRone [Buspar] 10 mg PO BEDTIME 05/05/16 03/06/17 History HYDROcodone/ACETAMIN 10-325 [[place] 1 tablet PO Q8H PRN #30 tablet 05/07/1603/06 Rx 10-325] Insulin NPH Hum/Reg Insulin Hm 25 unit SUBCUT BID #100 ml 05/07/16 03/06/17 Rx [NovoLIN 70/30] Bisacodyl Tab [Dulcolax Tab] 5 mg PO BEDTIME 02/24/17 03/06/17 History Cholecalciferol [Vitamin D3] 1,000 unit PO DAILY 02/24/17 03/06/17 History Furosemide 40 mg PO BID 02/24/17 03/06/17 History Potassium Chloride 10 meq PO BID 02/24/17 03/06/17 History tiZANidine [Zanaflex] 4 mg PO QID 02/24/17 03/06/17 History Aspirin EC Tab 81 mg PO DAILY #30 tablet 02/26/17 03/06/17 Rx Carvedilol [Coreg] 3.125 mg PO BID #60 tablet 02/26/17 03/06/17 Rx Ticagrelor [Brilinta] 90 mg PO BID #60 tablet 02/26/17 03/06/17 Rx Allergies Allergy/AdvReac Type Severity Reaction Status Date / Time No Known Allergies Allergy Unverified 05/05/16 01:30 - Constitutional Constitutional: Present: fatigue, lethargy, weakness. Absent: anorexia, chills - EENT Eyes: Absent: blurry vision, diplopia Nose, mouth and throat: Absent: dysphagia, epistaxis, neck mass, neck pain, sore throat - Cardiovascular Cardiovascular: Present: chest pain at rest, dyspnea, dyspnea on exertion, lightheadedness, palpitations, other (Overwhelming fatigue) - Respiratory Respiratory: Present: dyspnea on exertion. Absent: cough, dyspnea - Gastrointestinal Gastrointestinal: Present: heartburn, nausea. Absent: abdominal pain, bloating , dyspepsia, vomiting - Genitourinary Genitourinary: Absent: difficulty urinating, hematuria - Musculoskeletal Musculoskeletal: Present: arthralgias. Absent: joint swelling - Neurological Neurological: Absent: abnormal gait, abnormal speech, disequilibrium, dizziness - Psychiatric Psychiatric: Present: anxiety, depression - Endocrine Endocrine: Absent: cold intolerance, heat intolerance - Hematologic/Lymphatic Hematologic/Lymphatic: Absent: easy bleeding, easy bruising Medical,Surgical,& Family Hx - Medical History Cardio: History of: CHF, CAD, Hypertension Neurology: History of: Cerebrovascular Accident (X3) Endocrine: History of: Diabetes Mellitus (IDDM), Dyslipidemia Respiratory: History of: COPD - Surgical History Thoracic Surgeries: Surgical HX of;: Lobectomy (pt states left lower lobe removed) Abdominal Surgeries: Surgical HX of: Abdominal Surgery, Cholecystectomy, Hernia Repair - Family History Family History: Reports;: Family Diabetes (brother), Family Heart Disease (CAD ( dad) and CHF (sister)), Family Stroke (sister) - Social History Smoking Status: Never smoker Frequency of Alcohol Use: None Type of Drug Use: None Cardiology Physical Exam - Constitutional Vitals: Vital Signs Temp Pulse Resp BP Pulse Ox 97 F L 48 L 18 165/80 98 03/06/17 12:00 03/06/17 12:00 03/06/17 12:00 03/06/17 12:00 03/06/17 12:00 Intake and Output 03/05/17 03/06/17 03/06/17 23:59 07:59 15:59 Intake Total 1100 / 1100 Balance 1100 / 1100 Intake: Intake - Additional IV 1100 / 1100 Volume (mLs) Right Antecubital 1100 / 1100 Other: Weight 74.191 kg Patient Weight 03/06/17 23:59 Weight 74.191 kg General appearance: other (Thin pale frail) - Head Head exam: Present: normal inspection - Eye Eye exam: Present: EOMI Pupils: Present: [place] - Neck Neck exam: Present: normal inspection - Respiratory Respiratory exam: Present: clear to auscultation bilaterally - Cardiovascular Cardiovascular exam: Present: regular rate and rhythm, other (Murmur of aortic sclerosis PMI is laterally displaced he has an S4) - GI/Abdominal GI/Abdominal exam: Present: normal bowel sounds - Extremities Exam Extremities exam: Present: normal inspection - Back Exam Back exam: Present: normal inspection - Neurological Exam Neurological exam: Present: alert, oriented X3 - Psychiatric Psychiatric exam: Present: normal affect, normal mood - Skin Skin exam: Present: normal color, warm Result/EKG - Labs Labs: Laboratory Results - last 24 hr 03/06/17 03/06/17 03/06/17 01:00 01:00 04:02 POC Glucose Troponin I 0.635 H 1.880 H D B-Natriuretic Peptide 182 H 03/06/17 03/06/17 03/06/17 07:06 07:50 08:19 POC Glucose 53 L 65 L Troponin I 2.910 H D B-Natriuretic Peptide 03/06/17 03/06/17 03/06/17 08:37 08:57 09:28 POC Glucose 64 L 61 L 213 H Troponin I B-Natriuretic Peptide 03/06/17 12:00 POC Glucose 114 H Troponin I B-Natriuretic Peptide - EKG EKG results: interpreted by me (Dynamic high lateral and anterolateral ST segment changes) Quality Measures - VTE Contraindication to Pharmacological VTE Prophylaxis: High Risk of Bleeding
[2017-03-06] MEDS ORDERED: GLUCAGON 1 MG VIAL IM PRN (15:00)
[2017-03-06] MEDS ORDERED: TICAGRELOR 90 MG TABLET PO SCH (15:00)
[2017-03-06 16:07] LABS: Basophils # 0.1 10*3/uL (0.0-0.2); Basophils % 0.4 % (0.0-0.8); Eosinophils # 0.5 10*3/uL (0.0-0.87); Eosinophils % 3.5 % (0.00-10.9); Hematocrit 47.8 VOL% (42.0-52.0); Immature Granulocytes Absolute 0.13 #; Lymphocytes # 4.3 10*3/uL (1.4-4.0); Lymphocytes % 31.5 % (21.2-54.2); Mean Corpuscular HGB Conc 33.5 GM/DL (32-36); Mean Corpuscular Hemoglobin 31 PG (27-34); Mean Corpuscular Volume 92.8 FL (87-102); Monocytes # 1.2 10*3/uL (0.11-0.8); Monocytes % 8.8 % (1.7-12.7); Neutrophils # 7.5 10*3/uL (1.4-7.4); Neutrophils % 54.8 % (38.7-73.9); Platelet Count 316 T/CUMM (130-400); Red Blood Count 5.15 MC/CUMM (3.8-5.5); White Blood Count 13.6 T/CUMM (4-12)
[2017-03-06 16:26] LABS: Calcium 9.2 MG/DL (8.5-10.1); Magnesium 2.2 MG/DL (1.8-2.4); Osmolality,Calculated 285.4 MOS/KG (273-304); Potassium 4.7 MMOL/L (3.5-5.1)
[2017-03-06 16:32] LABS: Troponin I Only 2.18 NG/ML (0.00-0.045)
[2017-03-06] MEDS: tiZANidine 4 MG TABLET PO SCH ×2 (17:02→23:15)
[2017-03-06] MEDS: INSULIN REGULAR 100 UNIT/ML SUBCUT SCH ×2 (17:02→23:30)
[2017-03-06] MEDS: GABAPENTIN 300 MG CAPSULE PO SCH ×2 (17:02→23:15)
[2017-03-06] MEDS: TICAGRELOR 90 MG TABLET PO SCH (23:15)
[2017-03-06] MEDS: POTASSIUM CHLORIDE 10 MEQ TABLET PO SCH (23:16)
[2017-03-06] MEDS: DULoxetine 20 MG CAPSULE PO SCH (23:16)
[2017-03-06] MEDS: busPIRone 10 MG TABLET PO SCH (23:17)
[2017-03-06] MEDS: CARVEDILOL 3.125 MG TABLET PO SCH (23:17)
[2017-03-06] MEDS: BISACODYL 5 MG TABLET PO SCH ×2 (23:17→23:29)
[2017-03-06] MEDS: MELATONIN 3 MG TABLET PO SCH (23:21)
[2017-03-06] MEDS: INSULIN NPH/REGULAR 70/30 100 UNIT/ML SUBCUT SCH (23:30)
[2017-03-07 06:11] LABS: Basophils # 0.1 10*3/uL (0.0-0.2); Basophils % 0.5 % (0.0-0.8); Eosinophils # 0.6 10*3/uL (0.0-0.87); Eosinophils % 3.8 % (0.00-10.9); Hematocrit 46.4 VOL% (42.0-52.0); Hemoglobin 15.8 GM/DL (14.0-18.0); Immature Granulocytes % 0.7 %; Lymphocytes # 4.9 10*3/uL (1.4-4.0); Mean Corpuscular HGB Conc 34.1 GM/DL (32-36); Mean Corpuscular Hemoglobin 32 PG (27-34); Mean Corpuscular Volume 92.8 FL (87-102); Mean Platelet Volume 10.7 FL (9.6-12.0); Monocytes # 1.3 10*3/uL (0.11-0.8); Monocytes % 8.9 % (1.7-12.7); Neutrophils % 53.1 % (38.7-73.9); Platelet Count 308 T/CUMM (130-400); Red Cell Distribution Width 14.2 % (9.3-17.3)
[2017-03-07 06:47] LABS: Calcium 9.1 MG/DL (8.5-10.1); Magnesium 2.4 MG/DL (1.8-2.4); Osmolality,Calculated 281.3 MOS/KG (273-304); Potassium 4.2 MMOL/L (3.5-5.1)
[2017-03-07 06:48] LABS: Troponin I Only 1.07 NG/ML (0.00-0.045)
[2017-03-07] MEDS: INSULIN REGULAR 100 UNIT/ML SUBCUT SCH ×4 (09:31→22:15)
[2017-03-07] MEDS: INSULIN NPH/REGULAR 70/30 100 UNIT/ML SUBCUT SCH ×2 (09:32→22:13)
[2017-03-07] MEDS: CARVEDILOL 3.125 MG TABLET PO SCH ×2 (09:32→22:15)
[2017-03-07] MEDS: tiZANidine 4 MG TABLET PO SCH ×4 (09:33→22:14)
[2017-03-07] MEDS: GABAPENTIN 300 MG CAPSULE PO SCH ×3 (09:33→22:14)
[2017-03-07] MEDS: CHOLECALCIFEROL 1,000 UNIT TABLET PO SCH (09:33)
[2017-03-07] MEDS: PANTOPRAZOLE 40 MG TABLET PO SCH (09:34)
[2017-03-07] MEDS: TICAGRELOR 90 MG TABLET PO SCH ×2 (09:34→22:15)
[2017-03-07] MEDS: ASPIRIN EC 81 MG TABLET PO SCH (09:34)
[2017-03-07] MEDS: POTASSIUM CHLORIDE 10 MEQ TABLET PO SCH ×2 (09:34→22:14)
--- NOTE | 2017-03-07 12:00 | EKG Report ---
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
[2017-03-07] MEDS ORDERED: LIDOCAINE 1% 20 ML VIAL ONE (12:59)
[2017-03-07] MEDS ORDERED: HEPARIN/NACL 0.9% 2 UNITS/ML 1,000 ML IV ONE (12:59)
[2017-03-07] MEDS ORDERED: DIAZEPAM 5 MG TABLET PO ONE (13:06)
[2017-03-07] MEDS ORDERED: diphenhydrAMINE CAP 50 MG CAPSULE PO ONE (13:06)
[2017-03-07] MEDS ORDERED: DIAZEPAM 5 MG TABLET ONE (13:07)
--- NOTE | 2017-03-07 13:29 | History and Physical Update ---
Sedation H&P Update - History and Physical H&P was reviewed, the patient examined and there: are no changes in the patients condition since last H&P was completed. - Dictation Physical: refer to H&P completed by admitting physician - Physical Exam Mental Status: alert and oriented Heart: regular rate and rhythm Lung: clear to auscultation Abdomen: within normal limits Vitals: within normal limits - Sedation Plan for Sedation: moderate ASA Class: II Airway Assessment: Class II: Soft palate, uvula, fauces visible
--- NOTE | 2017-03-07 13:32 | Cardiology Progress Note ---
Freddy Sesay Lesley, KALLIE, am scribing for, and in the presence of, Jos Lorenzo MD 13:32. Assessment and Plan - Time spent with patient Time spent with patient: Greater than 30 minutes (Record review, assessment, and documentation) (1) CAD (coronary artery disease) Status: Chronic Current Visit: No (2) Hypertension Status: Chronic Current Visit: No (3) Elevated troponin Status: Acute Assessment and plan: Consider left heart cath today Current Visit: No (4) Chest pain Status: Acute Current Visit: No (5) Dyspnea Status: Acute Current Visit: Yes (6) Anticoagulation adequate Status: Chronic Current Visit: Yes Cardiology - PN: Subj Interval history: PERSONAL SERVICE REPRESENTATIVE: Dr. Wyman Summary: Mr. Roy is a 77 WM, was admitted to the hospital approximately 1 week post PCI. Cardiac risk factors include CAD, advanced age, hypertension, sleep edema , sedentary lifestyle. Patient has a history of bradycardia, COPD, general debility from 3 prior strokes. He is complaining of feeling fatigued, dyspneic , heart palpitations, and chest pain. Patient has a history of CABG in 2006 at [facility]. Recently, he received a 2.25 x 28 mm Xience drug-eluting stent in the saphenous vein graft to the RCA at the anastomosis.The ejection fraction is approximately 35%. Echocardiogram 05/05/2016: EF 55%, grade 1 diastolic dysfunction, PAP 17 mmHg. MARCH 07, 2017: The patient lying in bed, no acute distress, denies complaints of chest pain. He reports that he did well for 2-3 days post cath, but noted continued fatigue and malaise after that. More recently he noted dyspnea, heart palpitations, and chest pain. Troponin are cycled and peaked at 2.910. Creatinine is 0.9, electrolytes WNL. CBC reviewed, WBCs noted at 15,000. EKG reveals sinus bradycardia. The patient is continued aspirin and Brilinta daily. The patient has been held NPO and housed on telemetry, would consider left heart cath today. Will discuss further and await recommendations from Dr. Lorenzo. ASSESSMENT AND PLAN: 1. CHEST PAIN -concerning for angina 1 week post PCI. 2. CAD -continue medications, consider left heart cath. 3. DYSPNEA -noted on exertion, continue to monitor. 4. HEART PALPITATIONS -responded to fluids, now sinus bradycardia. 5. HYPERTENSION -continue medications and adjust accordingly. 6. ANTICOAGULATION -currently on Brilinta daily. 7. ELEVATED TROPONIN -cycled and peaked at 2.910. Cardiology addendum. 77-year-old man admitted with chest pain and enzymatic evidence for CO. Status post stent of the RCA distal anastomosis vein graft February [address] Wyman 2.25 x 28 mm Zions COHEN graft to the patent vein graft circumflex patent. Robinson right coronary circumflex has severe diffuse disease with EF 35%. Also has SVT and family reports periods of bradycardia. Will need to be monitored for possible pacemaker Labs okay Cardiac cath possible stent discussed with patient and and several family members. All agree to proceed. Plan cath today- Exam (Progress Note) - Constitutional Vitals: Period Temp Pulse Resp BP Sys/Luna Pulse Ox Last 24 Hr 96.9 F-98.8 F 44-54 16-18 110-165/57-85 91-99 Exam: General: [Appears well with no apparent distress.] [Pleasant and cooperative. ] [Appears comfortable.] HEENT: [PERRL, normocephalic, atraumatic]. [Mucous membranes moist.] [No jaundice noted.] [Conjunctiva moist and clear, sclerae anicteric.] Neck: [No JVD/HJR, no thyromegaly or lymphadenopathy noted.] [ No carotid bruit appreciated.] Cardiac: [Regular rate and rhythm.] [No murmur rub or gallop.] [PMI is nondisplaced.] Lungs: [Clear to auscultation without accessory muscle use to assist the respiratory pattern.] [No oxygen required] Abdomen: [Soft, bowel sounds normoactive.] [Nontender and nondistended.] [No abdominal bruit or thrill noted.] [No masses noted.] Musculoskeletal: [No fluid collection.] [Decreased range of motion is noted, lying in bed] Extremities: [No clubbing, cyanosis noted.] [ No edema noted.] [Upper extremity pulses 2+.] [Lower extremity pulses 2+.] [Capillary refill less than 3 seconds.] Skin: [No unusual lesions or rashes.] [No skin breakdown appreciated.] Neuro: [Awake, alert and oriented 3.] [Moves all extremities well without hemiparesis or paralysis.] [No essential tremor is appreciated.] Result/EKG - Labs CBC & BMP: 03/07/17 06:04 03/07/17 06:04 Lab Results: I have reviewed the past 24 hour labs Labs: Laboratory Results - last 24 hr 03/06/17 03/06/17 03/06/17 12:00 15:24 15:24 WBC 13.6 H RBC 5.15 Hgb 16.0 Hct 47.8 MCV 92.8 MCH 31 MCHC 33.5 RDW 14.0 Plt Count 316 MPV 11.0 Neut % (Auto) 54.8 Lymph % (Auto) 31.5 Hubbard % (Auto) 8.8 Eos % (Auto) 3.5 Baso % (Auto) 0.4 Neut # (Auto) 7.5 H Lymph # (Auto) 4.3 H Hubbard # (Auto) 1.2 H Eos # (Auto) 0.5 Baso # (Auto) 0.1 Immature Gran % 1.0 Nucleated RBC % 0.0 Immature Gran # 0.13 Nucleated RBCs # 0.00 Immature Plt Fraction 0.0 Sodium 140 Potassium 4.7 Chloride 106 Carbon Dioxide 27 Anion Gap 11.7 BUN 23 H Creatinine 0.80 GFR Calculation 96 BUN/Creatinine Ratio 28.00 H Glucose 147 H POC Glucose 114 H Calculated Osmolality 285.4 Calcium 9.2 Magnesium 2.2 Troponin I 2.180 H D 03/06/17 03/06/17 03/07/17 16:18 23:26 06:04 WBC 15.0 H RBC 5.00 Hgb 15.8 Hct 46.4 MCV 92.8 MCH 32 MCHC 34.1 RDW 14.2 Plt Count 308 MPV 10.7 Neut % (Auto) 53.1 Lymph % (Auto) 33.0 Hubbard % (Auto) 8.9 Eos % (Auto) 3.8 Baso % (Auto) 0.5 Neut # (Auto) 8.0 H Lymph # (Auto) 4.9 H Hubbard # (Auto) 1.3 H Eos # (Auto) 0.6 Baso # (Auto) 0.1 Immature Gran % 0.7 Nucleated RBC % 0.0 Immature Gran # 0.10 Nucleated RBCs # 0.00 Immature Plt Fraction 0.0 Sodium Potassium Chloride Carbon Dioxide Anion Gap BUN Creatinine GFR Calculation BUN/Creatinine Ratio Glucose POC Glucose 113 H 208 H Calculated Osmolality Calcium Magnesium Troponin I 03/07/17 03/07/17 06:04 07:26 WBC RBC Hgb Hct MCV MCH MCHC RDW Plt Count MPV Neut % (Auto) Lymph % (Auto) Hubbard % (Auto) Eos % (Auto) Baso % (Auto) Neut # (Auto) Lymph # (Auto) Hubbard # (Auto) Eos # (Auto) Baso # (Auto) Immature Gran % Nucleated RBC % Immature Gran # Nucleated RBCs # Immature Plt Fraction Sodium 141 Potassium 4.2 Chloride 107 Carbon Dioxide 28 Anion Gap 10.2 BUN 16 Creatinine 0.90 GFR Calculation 91 BUN/Creatinine Ratio 17.00 Glucose 98 POC Glucose 92 Calculated Osmolality 281.3 Calcium 9.1 Magnesium 2.4 Troponin I 1.070 H D - EKG EKG results: interpreted by me EKG shows: bradycardia Quality Measures - VTE Contraindication to Pharmacological VTE Prophylaxis: High Risk of Bleeding Maura Sesay Thomas, MD, personally performed the services described in this documentation, ascribed by Charissa Hayes NP in my presence, and it is both accurate and complete [id number] .
[2017-03-07] MEDS ORDERED: MIDAZOLAM 2 MG/2 ML VIAL ONE (13:40)
[2017-03-07] MEDS ORDERED: HYDROmorphone 2 MG/1 ML VIAL ONE (13:40)
[2017-03-07] MEDS ORDERED: BIVALIRUDIN 250 MG VIAL IV ONE (14:21)
[2017-03-07] MEDS ORDERED: BIVALIRUDIN 250 MG in SODIUM CHLORIDE 0.9% 50 ML IV SCH (14:27)
[2017-03-07] MEDS ORDERED: TICAGRELOR 90 MG TABLET ONE (14:49)
[2017-03-07] MEDS ORDERED: NITROGLYCERIN SL 0.4 MG TABLET SL PRN (15:22)
[2017-03-07] MEDS ORDERED: ZALEPLON 5 MG CAPSULE PO PRN (15:22)
--- NOTE | 2017-03-07 15:22 | Cardiac Catheterization ---
Date of Procedure:: 03/07/17 Pre-op Diagnosis: Chest pain non-Q-wave OR Post-op diagnosis: same Procedure: Cardiac catheterization procedure note #1 left heart catheterization #2 selective coronary angiography #3 COHEN angiography #4 vein graft angiography #5 left ventriculography #6 successful diagonal stent #7 successful stent OM 3 #8 successful ostial circumflex stent Omnipaque was used for procedure Description of procedure. The patient had a non-Q-wave OR and was brought to the School Services Officer. Following sterile preparation draping of the left groin local anesthesia was achieved by infiltration with 1% Xylocaine. Using a Cook needle the left femoral artery was cannulated and a #6 sheath was inserted. A 6 Zimbabwean pigtail catheter was advanced retrograde across aortic valve into the left ventricle and the end- diastolic pressure was recorded. Left ventriculography was performed in the VAZQUEZ projection using 24 cc of contrast. A pullback recordings made across phytic valve. The pigtail catheter exchanged for a 6 [place]an left Richard catheter and left coronary angiography was performed in VAZQUEZ and YORUBA projections. Catheter change for a 6 [place]an right Amplatz catheter and right coronary angiography was performed in the YORUBA projection only. Catheter change for a 6 [place]an multipurpose catheter and vein graft and she was performed in the YORUBA projection only. Catheter change for a 6 [place]an internal mammary artery catheter and COHEN angiography was performed in VAZQUEZ and YORUBA projections. The catheter exchanged for a 6 [place]an left JudkinsGuiding cath and left main was recannulated. Patient was bolused with Angiomax and placed on infusion per protocol. A 0.014 pro-water wire was passed across the lesion and placed into the distal diagonal. Direct stenting was performed with a 2.5 x 12 mm Alpine Zions drug-eluting stent. Maximum inflation pressure 12 suzanne for 30 seconds creating a 2.60 mm lumen. Good result obtained. The wire was redirected into the third OM branch and direct stenting was done with a 2.5 x 12 mm Alpine Zions drug-eluting stent. The maximum inflation pressure was 12 suzanne for 30 seconds, creating a 2.6 mm lumen. Another stent was placed in the ostial circumflex 2.5 x 12 mm Alpine Zions drug-eluting, postdilated to 12 suzanne for 30 seconds creating a 2.60 mm lumen. The balloon was then deflated and brought back to the guiding catheter. Repeat angiography widely patent vessel with mild residual narrowing no dissection and brisk runoff. The guiding catheter and sheath were then removed and the left femoral arch [place] site was sealed percutaneously minx closure device with prompt cessation of bleeding and prompt return of femoral and foot pulses. No complications ensued. The patient transferred back to telemetry in stable condition. Hemodynamic data Aortic pressure 120/51 mean 75 LV 120/10 Selective coronary angiography Left main trunk is patent and bifurcates. The LAD is totally occluded proximally for the first septal shop repairer. The large first diagonal is 80% proximal stenosis. The circumflex has an 80% ostial stenosis. There is severe diffuse disease in the small first OM branch. There is an 80% ostial stenosis in the third OM branch extends out to the apex. The dominant coronary artery has moderate proximal disease and an 80% mid vessel stenosis. The vein graft to the circumflex is occluded at its origin. The vein graft right coronary artery has a widely patent stent site at the distal anastomosis. The COHEN graft to the LAD is patent. However, the apical LAD is obliterated. Left ventriculography There is moderately severe global hypokinesis, ejection fraction 30%. No mitral regurgitation. Conclusions #1 LVEDP 10 #2 ejection fraction 30% with global hypokinesis. #3 no mitral regurgitation #4 no aortic valve gradient #5 left main trunk-patent #6 LAD-100% proximal before first septal shop repairer #7 large first diagonal-80% proximal #8 circumflex system-80% ostial stenosis and severe disease in the first small OM branch. 80% ostial stenosis in OM 3 #9 dominant right coronary-moderate proximal disease and 80% mid #10 SVG to circumflex= occluded at origin #11 SVG to distal RCA-widely patent stent site at the distal anastomosis from February 24, 2017 #12 COHEN graft to LAD-widely patent. However, the apical LAD is obliterated #13 successful diagonal stent using a 2.5 x 12 mm Alpine Zions drug-eluting stent, postdilated to 12 suzanne creating a 2.60 mm lumen #14 successful stent OM 3 using a 2.5 x 12 mm Alpine Zions drug-eluting stent, postdilated to 11 suzanne creating a 2.55 mm lumen #15 successful ostial circumflex stent using a 2.5 x 12 mm Alpine Zions drug- eluting stent, postdilated to 12 suzanne creating a 2.60 mm lumen Disposition The patient status post three-vessel CABG at [facility] in 2006. The RCA vein graft stent site at the distal anastomosis from February 24, 2017 remains widely patent. He has multiple potential areas for ischemia. Today underwent diagonal stenting with a 2.5 x 12 mm alpine drug-coated stent, stenting of the ostial OM 3 with a 2.5 x 12 mm Alpine drug-coated stent and stenting of the ostial circumflex with a 2.5 x 12 mm Alpine drug-coated stent with good results obtained. His left groin was sealed percutaneously minx closure device. He will remain on normal saline hydration and CBC, BMP, CPK troponin rechecked in the morning. He will continue aspirin Brilinta and statin therapy. Cine pictures were reviewed with the patient's and several family members. 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 Implants: Successful stent 2.5 x 12 mm diagonal postdilated 2.60 mm lumen. Successful stent OM 3 2.5 x 12 mm postdilated 2.55 mm lumen Successful stent ostial circumflex 2.5 x 12 mm postdilated 2.60 mm lumen good results obtained. Anesthesia: moderate conscious sedation Surgeon / Physician: Jos Lorenzo Estimated blood loss: minimal Specimens: none sent Condition: stable Disposition: floor - Medications / Follow-up
--- NOTE | 2017-03-07 16:40 | EKG Report ---
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
[2017-03-07] MEDS: MELATONIN 3 MG TABLET PO SCH (22:13)
[2017-03-07] MEDS: BISACODYL 5 MG TABLET PO SCH (22:14)
[2017-03-07] MEDS: DULoxetine 20 MG CAPSULE PO SCH (22:14)
[2017-03-07] MEDS: busPIRone 10 MG TABLET PO SCH (22:15)
[2017-03-08 05:11] LABS: Basophils # 0.1 10*3/uL (0.0-0.2); Basophils % 0.4 % (0.0-0.8); Eosinophils # 0.4 10*3/uL (0.0-0.87); Eosinophils % 3.4 % (0.00-10.9); Hematocrit 43.6 VOL% (42.0-52.0); Hemoglobin 14.9 GM/DL (14.0-18.0); Immature Granulocytes % 0.6 %; Immature Granulocytes Absolute 0.07 #; Lymphocytes # 3.7 10*3/uL (1.4-4.0); Lymphocytes % 30.6 % (21.2-54.2); Mean Corpuscular HGB Conc 34.2 GM/DL (32-36); Mean Corpuscular Hemoglobin 32 PG (27-34); Mean Corpuscular Volume 92.6 FL (87-102); Mean Platelet Volume 11.5 FL (9.6-12.0); Monocytes # 1.4 10*3/uL (0.11-0.8); Monocytes % 11.7 % (1.7-12.7); Neutrophils # 6.5 10*3/uL (1.4-7.4); Neutrophils % 53.3 % (38.7-73.9); Platelet Count 283 T/CUMM (130-400); Red Blood Count 4.71 MC/CUMM (3.8-5.5); Red Cell Distribution Width 14.1 % (9.3-17.3); White Blood Count 12.2 T/CUMM (4-12)
[2017-03-08 05:51] LABS: Blood Urea Nitrogen 14 MG/DL (7-18); Calcium 8.9 MG/DL (8.5-10.1); Glucose 147 MG/DL (74-106); Osmolality,Calculated 280.5 MOS/KG (273-304); Potassium 4.3 MMOL/L (3.5-5.1); Sodium 139 MMOL/L (136-145)
[2017-03-08 05:52] LABS: Troponin I Only 0.739 NG/ML (0.00-0.045)
--- NOTE | 2017-03-08 07:30 | EKG Report ---
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
--- NOTE | 2017-03-08 08:29 | Physician Query Form ---
CLICK EDIT DOCUMENT TO SELECT QUERY ANSWER --> OK --> SIGN Shayy Garland RN, CCDS Certified Clinical Avionics Test Technician W) [phone] (f) [phone] [email or web address] PROVIDERS: Make your selection(s) from the choices in EACH section by typing an "x" and enter comments in the comment section. Please use your independent medical judgment in providing your response. This request does not imply that any particular answer is desired or expected. CLINICAL INDICATORS: (Providers should not edit this section) The medical record indicates that the patient was admitted with an FL, BNP 182# , "ejection fraction was 35%" and with a HISTORY of CHF can you please specify the type of CHF. ---Patient is on Coreg. Please provide further specificity regarding CHF. ACUITY: ( x) Acute ( ) Chronic ( ) Acute on Chronic ( ) Clinically unable to determine TYPE: ( ) Systolic (HFrEF - heart failure with reduced systolic function/EF) ( ) Diastolic (HFpEF - heart failure with preserved systolic function/EF) (x ) Combined Systolic/Diastolic ( ) Other, please specify: ( ) Clinically unable to determine ( ) Past Medical History of Systolic CHF ( ) Past Medical History of Diastolic CHF ( ) Clinically unable to determine COMMENTS: PLEASE ALSO DOCUMENT RESPONSE IN PROGRESS NOTES AND/OR DISCHARGE SUMMARY Use of terms such as suspected, likely, or probable (associated with a specific diagnosis that is being evaluated, monitored, or treated as if it exists) are acceptable and can be restated in the discharge summary if not ruled out. MTDD
[2017-03-08] MEDS: CHOLECALCIFEROL 1,000 UNIT TABLET PO SCH (09:48)
[2017-03-08] MEDS: TICAGRELOR 90 MG TABLET PO SCH ×2 (09:48→21:17)
[2017-03-08] MEDS: PANTOPRAZOLE 40 MG TABLET PO SCH (09:48)
[2017-03-08] MEDS: tiZANidine 4 MG TABLET PO SCH ×4 (09:48→21:17)
[2017-03-08] MEDS: INSULIN NPH/REGULAR 70/30 100 UNIT/ML SUBCUT SCH ×2 (09:48→21:18)
[2017-03-08] MEDS: ASPIRIN EC 81 MG TABLET PO SCH (09:48)
[2017-03-08] MEDS: POTASSIUM CHLORIDE 10 MEQ TABLET PO SCH ×2 (09:48→21:17)
[2017-03-08] MEDS: GABAPENTIN 300 MG CAPSULE PO SCH ×3 (09:48→21:17)
[2017-03-08] MEDS: INSULIN REGULAR 100 UNIT/ML SUBCUT SCH ×4 (09:53→21:17)
[2017-03-08] MEDS: CARVEDILOL 3.125 MG TABLET PO SCH ×2 (09:54→21:19)
--- NOTE | 2017-03-08 11:57 | Cardiology Progress Note ---
Assessment and Plan (1) CAD (coronary artery disease) Status: Chronic Current Visit: No (2) Hypertension Status: Chronic Current Visit: No (3) Elevated troponin Status: Resolved Assessment and plan: Consider left heart cath today Current Visit: No (4) Chest pain Status: Resolved Current Visit: No (5) Dyspnea Status: Resolved Current Visit: Yes (6) Anticoagulation adequate Status: Chronic Current Visit: Yes Cardiology - PN: Subj Interval history: Cardiology note. 77-year-old man with an ischemic cardiomyopathy admitted with non-Q-wave MO. Status post stent RCA vein graft distal anastomosis February 27, 2017 Patient has multiple ischemic areas Cath yesterday showed a patent RCA vein graft stent site with EF 30% and severe global hypokinesis He underwent stenting of the large first diagonal and stenting of the OM 3 and stenting of the ostial circumflex. Patient also has episodes of SVT rates of 154 documented and examined periods of sinus bradycardia heart rate is currently 45 and last night it got as low as 39. This patient needs a dual-chamber pacemaker/defibrillator for backup rate support that will allow me to up titrate his medications. I have called to review the data and to evaluate for ICD on . No chest pain or shortness of breath Telemetry shows sinus bradycardia heart rate 45 O2 sat is 95% on 2 L cannula Lab data White count 12.2 hemoglobin 14.9 hematocrit 43.6 Sodium 139 potassium 4.2 chloride 105 CO2 26 BUN 14 creatinine 0.80 CPK 21 troponin 0.731 glucose 147 Plan Monitor Lasix 40 mg daily Lisinopril 2.[address] Turner-notified by me Exam (Progress Note) - Constitutional Vitals: Period Temp Pulse Resp BP Sys/Luna Pulse Ox Last 24 Hr 97.5 F-98.5 F 43-54 16-20 117-157/56-80 94-981 Result/EKG - Labs CBC & BMP: 03/08/17 03:26 03/08/17 03:26 Labs: Laboratory Results - last 24 hr 03/07/17 03/07/17 03/07/17 11:38 16:30 20:48 WBC RBC Hgb Hct MCV MCH MCHC RDW Plt Count MPV Neut % (Auto) Lymph % (Auto) Preston % (Auto) Eos % (Auto) Baso % (Auto) Neut # (Auto) Lymph # (Auto) Preston # (Auto) Eos # (Auto) Baso # (Auto) Immature Gran % Nucleated RBC % Immature Gran # Nucleated RBCs # Immature Plt Fraction Sodium Potassium Chloride Carbon Dioxide Anion Gap BUN Creatinine GFR Calculation BUN/Creatinine Ratio Glucose POC Glucose 119 H 80 162 H Calculated Osmolality Calcium Total Creatine Kinase CK-MB (CK-2) Troponin I 03/08/17 03/08/17 03/08/17 03:26 03:26 07:52 WBC 12.2 H RBC 4.71 Hgb 14.9 Hct 43.6 MCV 92.6 MCH 32 MCHC 34.2 RDW 14.1 Plt Count 283 MPV 11.5 Neut % (Auto) 53.3 Lymph % (Auto) 30.6 Preston % (Auto) 11.7 Eos % (Auto) 3.4 Baso % (Auto) 0.4 Neut # (Auto) 6.5 Lymph # (Auto) 3.7 Preston # (Auto) 1.4 H Eos # (Auto) 0.4 Baso # (Auto) 0.1 Immature Gran % 0.6 Nucleated RBC % 0.0 Immature Gran # 0.07 Nucleated RBCs # 0.00 Immature Plt Fraction 0.0 Sodium 139 Potassium 4.3 Chloride 105 Carbon Dioxide 26 Anion Gap 12.3 BUN 14 Creatinine 0.80 GFR Calculation 95 BUN/Creatinine Ratio 17.00 Glucose 147 H POC Glucose 101 Calculated Osmolality 280.5 Calcium 8.9 Total Creatine Kinase 21 L CK-MB (CK-2) 2.7 Troponin I 0.739 H D Quality Measures - VTE Contraindication to Pharmacological VTE Prophylaxis: High Risk of Bleeding Specialty Discharge - Follow Up or Referrals
[2017-03-08] MEDS: LISINOPRIL 2.5 MG TABLET PO SCH (13:00)
[2017-03-08] MEDS: FUROSEMIDE 40 MG TABLET PO SCH (13:00)
[2017-03-08] MEDS: BISACODYL 5 MG TABLET PO SCH (21:17)
[2017-03-08] MEDS: MELATONIN 3 MG TABLET PO SCH (21:17)
[2017-03-08] MEDS: DULoxetine 20 MG CAPSULE PO SCH (21:17)
[2017-03-08] MEDS: busPIRone 10 MG TABLET PO SCH (21:27)
[2017-03-09] MEDS: CHOLECALCIFEROL 1,000 UNIT TABLET PO SCH (09:04)
[2017-03-09] MEDS: INSULIN NPH/REGULAR 70/30 100 UNIT/ML SUBCUT SCH ×2 (09:04→22:10)
[2017-03-09] MEDS: LISINOPRIL 2.5 MG TABLET PO SCH (09:04)
[2017-03-09] MEDS: GABAPENTIN 300 MG CAPSULE PO SCH ×3 (09:05→22:12)
[2017-03-09] MEDS: FUROSEMIDE 40 MG TABLET PO SCH (09:05)
[2017-03-09] MEDS: PANTOPRAZOLE 40 MG TABLET PO SCH (09:05)
[2017-03-09] MEDS: ASPIRIN EC 81 MG TABLET PO SCH (09:05)
[2017-03-09] MEDS: TICAGRELOR 90 MG TABLET PO SCH ×2 (09:05→22:13)
[2017-03-09] MEDS: tiZANidine 4 MG TABLET PO SCH ×4 (09:05→22:13)
[2017-03-09] MEDS: CARVEDILOL 3.125 MG TABLET PO SCH ×2 (09:05→22:08)
[2017-03-09] MEDS: POTASSIUM CHLORIDE 10 MEQ TABLET PO SCH ×2 (09:05→22:12)
[2017-03-09] MEDS: INSULIN REGULAR 100 UNIT/ML SUBCUT SCH ×4 (09:06→22:10)
--- NOTE | 2017-03-09 15:25 | Cardiology Progress Note ---
Freddy Sesay Lesley, KALLIE, am scribing for, and in the presence of, Jos Lorenzo MD 15:25. Assessment and Plan - Time spent with patient Time spent with patient: Greater than 30 minutes (Record review, assessment, and documentation) (1) CAD (coronary artery disease) Status: Chronic Assessment and plan: SEE PLAN LISTED BELOW Current Visit: No (2) Hypertension Status: Chronic Assessment and plan: SEE PLAN LISTED BELOW Current Visit: No (3) Dyspnea Status: Resolved Assessment and plan: SEE PLAN LISTED BELOW Current Visit: Yes (4) Anticoagulation adequate Status: Chronic Assessment and plan: SEE PLAN LISTED BELOW Current Visit: Yes (5) Ischemic cardiomyopathy Status: Chronic Assessment and plan: SEE PLAN LISTED BELOW Current Visit: Yes Cardiology - PN: Subj 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 Wyman Summary: Mr. Roy is a 77 WM, was admitted to the hospital approximately 1 week post PCI. Cardiac risk factors include CAD, advanced age, hypertension, sleep edema , sedentary lifestyle. Patient has a history of bradycardia, COPD, general debility from 3 prior strokes. He is complaining of feeling fatigued, dyspneic , heart palpitations, and chest pain. Patient has a history of CABG in 2006 at [facility]. Recently, he received a 2.25 x 28 mm Xience drug-eluting stent in the saphenous vein graft to the RCA at the anastomosis.The ejection fraction is approximately 35%. Echocardiogram 05/05/2016: EF 55%, grade 1 diastolic dysfunction, PAP 17 mmHg. MARCH 07, 2017: Left heart cath with successful diagonal stent using a 2.5 x 12 mm Alpine Zions drug-eluting stent, postdilated to 12 suzanne creating a 2.60 mm lumen; successful stent OM 3 using a 2.5 x 12 mm Alpine Zions drug-eluting stent , postdilated to 11 suzanne creating a 2.55 mm lumen; successful ostial circumflex stent using a 2.5 x 12 mm Alpine Zions drug-eluting stent, postdilated to 12 suzanne creating a 2.60 mm lumen. RCA vein graft stent widely patent from 02/24/17. EF 30% with global hypokinesis. MARCH 08, 2017: Patient also has episodes of SVT rates of 154 documented and examined periods of sinus bradycardia heart rate is currently 45 and last night it got as low as 39. Continue to monitor patient on telemetry. The left groin soft, no bruit auscultated, dressing removed. Left pedal pulse palpable. MARCH 09, 2017: Patient is doing well, reports he feels better today. He denies complaints of chest pain or dyspnea. He is status post left heart cath with multi vessel stents. Troponin today 0.739. Telemetry reviewed and the patient remains in sinus bradycardia rate 40-60 beats per minute. Patient has been ambulatory in the room today and is asymptomatic. Oxygen saturation 95% on 2 L nasal cannula. ASSESSMENT AND PLAN: 1. CHEST PAIN -resolved, status post left heart cath with stents. 2. CAD -continue medications, now chest pain-free, dyspnea resolved. 3. DYSPNEA -improved. 4. HEART PALPITATIONS -initially rate in the 150s, resolved with IV fluids, now sinus bradycardia. 5. HYPERTENSION -continue medications and adjust accordingly. 6. ANTICOAGULATION -currently on Brilinta daily. 7. ELEVATED TROPONIN -cycled and peaked at 2.910, trending downward. 8. ISCHEMIC CARDIOMYOPATHY -EF 30%, consider dual-chamber pacemaker with defibrillator in the future. Cardiology addendum Patient examined chart reviewed and discussed with nurse Sonia Hayes. Tired but no chest pain Telemetry shows sinus bradycardia in the 50s. No recurrent episodes of SVT Blood pressure 106/56 Lab data Sodium 139 potassium 4.3 chloride 105 CO2 30 BUN 14 creatinine 0.80 glucose 147 Weight 73.2 kg Plan Continue Coreg 3.125 g twice daily Continue Lasix 40 mg daily Continue lisinopril 2.5 mg daily Home tomorrow. Office visit with EKG in 2 weeks with . The patient will need to be out 30 days from his coronary intervention prior to proceeding with dual- chamber pacemaker/defibrillator BMP in a.m. Exam (Progress Note) - Constitutional Vitals: Period Temp Pulse Resp BP Sys/Luna Pulse Ox Last 24 Hr 97.1 F-98.9 F 49-58 12-20 95-139/47-63 93-98 Exam: General: Appears well with no apparent distress. Pleasant and cooperative. Appears comfortable. HEENT: PERRL, normocephalic, atraumatic. Mucous membranes moist. No jaundice noted. Conjunctiva moist and clear, sclerae anicteric. Neck: No JVD/HJR, no thyromegaly or lymphadenopathy noted. No carotid bruit appreciated. Cardiac: Regular rate and rhythm. No murmur, rub, or gallop. PMI is nondisplaced. Lungs: Clear to auscultation without accessory muscle use to assist the respiratory pattern. No oxygen required Abdomen: Soft, bowel sounds normoactive. Nontender and nondistended. No abdominal bruit or thrill noted. No masses noted. Musculoskeletal: No fluid collection. Full range of motion is noted, lying in bed Extremities: No clubbing, cyanosis noted. No edema noted. Upper extremity pulses 2+. Lower extremity pulses 2+. Capillary refill less than 3 seconds. Left groin soft, mild bruising noted at site, no bruits auscultated, left pedal pulse palpable. Skin: No unusual lesions or rashes. No skin breakdown appreciated. Neuro: Awake, alert and oriented 3. Moves all extremities well without hemiparesis or paralysis. No essential tremor is appreciated. Result/EKG - Labs CBC & BMP: 03/08/17 03:26 03/08/17 03:26 Lab Results: I have reviewed the past 24 hour labs Labs: Laboratory Results - last 24 hr 03/08/17 03/08/17 03/09/17 15:49 19:47 08:06 POC Glucose 162 H 206 H 119 H 03/09/17 11:45 POC Glucose 148 H - EKG EKG results: interpreted by me EKG shows: bradycardia Quality Measures - VTE Contraindication to Pharmacological VTE Prophylaxis: High Risk of Bleeding Specialty Discharge - Follow Up or Referrals I, Jos Lorenzo MD, personally performed the services described in this documentation, ascribed by Charissa Hayes NP in my presence, and it is both accurate and complete 525 .
[2017-03-09] MEDS: MELATONIN 3 MG TABLET PO SCH (22:11)
[2017-03-09] MEDS: busPIRone 10 MG TABLET PO SCH (22:13)
[2017-03-09] MEDS: BISACODYL 5 MG TABLET PO SCH (22:13)
[2017-03-09] MEDS: DULoxetine 20 MG CAPSULE PO SCH (22:13)
[2017-03-10 06:15] LABS: Basophils # 0.1 10*3/uL (0.0-0.2); Basophils % 0.4 % (0.0-0.8); Eosinophils # 0.6 10*3/uL (0.0-0.87); Eosinophils % 3.8 % (0.00-10.9); Hemoglobin 14.5 GM/DL (14.0-18.0); Immature Granulocytes Absolute 0.14 #; Lymphocytes % 27.3 % (21.2-54.2); Mean Corpuscular HGB Conc 34.5 GM/DL (32-36); Mean Corpuscular Hemoglobin 32 PG (27-34); Mean Corpuscular Volume 91.9 FL (87-102); Mean Platelet Volume 11.8 FL (9.6-12.0); Monocytes # 1.9 10*3/uL (0.11-0.8); Monocytes % 12.8 % (1.7-12.7); Neutrophils % 54.7 % (38.7-73.9); Platelet Count 290 T/CUMM (130-400); Red Blood Count 4.57 MC/CUMM (3.8-5.5); Red Cell Distribution Width 13.8 % (9.3-17.3); White Blood Count 14.6 T/CUMM (4-12)
[2017-03-10 06:47] LABS: Calcium 8.5 MG/DL (8.5-10.1); Magnesium 2.2 MG/DL (1.8-2.4); Osmolality,Calculated 279.8 MOS/KG (273-304); Potassium 4.3 MMOL/L (3.5-5.1)
[2017-03-10 06:53] LABS: Calcium 8.8 MG/DL (8.5-10.1); Osmolality,Calculated 279.8 MOS/KG (273-304); Potassium 4.3 MMOL/L (3.5-5.1)
[2017-03-10] MEDS: LISINOPRIL 2.5 MG TABLET PO SCH (09:05)
[2017-03-10] MEDS: ASPIRIN EC 81 MG TABLET PO SCH (09:05)
[2017-03-10] MEDS: tiZANidine 4 MG TABLET PO SCH ×2 (09:05→12:25)
[2017-03-10] MEDS: TICAGRELOR 90 MG TABLET PO SCH (09:05)
[2017-03-10] MEDS: POTASSIUM CHLORIDE 10 MEQ TABLET PO SCH (09:05)
[2017-03-10] MEDS: CHOLECALCIFEROL 1,000 UNIT TABLET PO SCH (09:05)
[2017-03-10] MEDS: PANTOPRAZOLE 40 MG TABLET PO SCH (09:05)
[2017-03-10] MEDS: FUROSEMIDE 40 MG TABLET PO SCH (09:05)
[2017-03-10] MEDS: INSULIN NPH/REGULAR 70/30 100 UNIT/ML SUBCUT SCH (09:06)
[2017-03-10] MEDS: GABAPENTIN 300 MG CAPSULE PO SCH ×2 (09:06→15:44)
[2017-03-10] MEDS: INSULIN REGULAR 100 UNIT/ML SUBCUT SCH ×2 (09:07→11:53)
[2017-03-10] MEDS: CARVEDILOL 3.125 MG TABLET PO SCH (09:07)
[2017-03-10 11:29] VITALS: BP 138/55
--- NOTE | 2017-03-10 15:00 | Discharge Summary ---
Eduardo Sesay April RN, am scribing for, and in the presence of, Jos Lorenzo MD 14:59. 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 Wyman Mr. Roy is a 77 WM, was admitted to the hospital approximately 1 week post PCI. Cardiac risk factors include CAD, advanced age, hypertension, sleep edema , sedentary lifestyle. Patient has a history of bradycardia, COPD, general debility from 3 prior strokes. He is complaining of feeling fatigued, dyspneic , heart palpitations, and chest pain. Patient has a history of CABG in 2006 at [facility]. Recently, he received a 2.25 x 28 mm Xience drug-eluting stent in the saphenous vein graft to the RCA at the anastomosis.The ejection fraction is approximately 35%. Echocardiogram 05/05/2016: EF 55%, grade 1 diastolic dysfunction, PAP 17 mmHg. He underwent left heart catheterization March 07 with the following findings: #1 LVEDP 10 #2 ejection fraction 30% with global hypokinesis. #3 no mitral regurgitation #4 no aortic valve gradient #5 left main trunk-patent #6 LAD-100% proximal before first septal supervisor glycerin #7 large first diagonal-80% proximal #8 circumflex system-80% ostial stenosis and severe disease in the first small OM branch. 80% ostial stenosis in OM 3 #9 dominant right coronary-moderate proximal disease and 80% mid #10 SVG to circumflex= occluded at origin #11 SVG to distal RCA-widely patent stent site at the distal anastomosis from February 24, 2017 #12 COHEN graft to LAD-widely patent. However, the apical LAD is obliterated #13 successful diagonal stent using a 2.5 x 12 mm Alpine Zions drug-eluting stent, postdilated to 12 suzanne creating a 2.60 mm lumen #14 successful stent OM 3 using a 2.5 x 12 mm Alpine Zions drug-eluting stent, postdilated to 11 suzanne creating a 2.55 mm lumen #15 successful ostial circumflex stent using a 2.5 x 12 mm Alpine Zions drug- eluting stent, postdilated to 12 uszanne creating a 2.60 mm lumen Today he is seen resting in bed no acute distress. He states he is ready to go home. He denies any chest pain and states his breathing is at his usual baseline. Oxygen is in use via nasal cannula, he does have home O2. Left groin is soft without evidence of bleeding or hematoma. Left pedal pulses palpable. environmental monitoring specialist currently shows sinus bradycardia with heart rates in the 50s. Today's labs: WBC 14.6 hemoglobin 14.5 hematocrit 42.0 Sodium 137 potassium 4.3 chloride 102 CO2 28 BUN 17 creatinine 1.0 Glucose 128 magnesium 2.2 He has had episodes of SVT with documented rates in the 150s. He has also had periods of bradycardia with heart rates as low as 30s. His medications have been adjusted and his heart rates have remained in the 50s for the last 2-3 days. He needs to be 30 days from his coronary intervention prior to proceeding with dual-chamber pacemaker/defibrillator. We will schedule appointment for him to see Dr. Watts in 2 weeks with labs and EKG to reassess. He will be discharged on the following medications in addition to his routine home medications: Aspirin 81 mg p.o. daily Coreg 3.125 mg p.o. twice daily Lisinopril 2.5 mg p.o. daily Lasix 40 mg daily Potassium chloride 10 mEq p.o. twice daily Brilinta 90 mg p.o. twice daily Cardiology addendum patient seen chart reviewed discussed with nurse Savanah Clark RN. Telemetry shows sinus rhythm in the 50s. He is tolerating Coreg 3.125 g twice daily. He has had no recurrent episodes of SVT. Renal function is stable. Creatinine 1.0 BUN 17 potassium 4.3. Blood pressure 130/72. Plan Home today Medications as outlined Office visit with Dr. Watts in 2 weeks with EKG and BMP. - Time spent with patient Time with patient DS: Greater than 30 minutes Diagnosis - Discharge Diagnosis (1) Chest pain Status: Resolved (2) SVT (supraventricular tachycardia) Status: Resolved (3) Ischemic cardiomyopathy Status: Chronic (4) Elevated troponin Status: Resolved (5) Bradycardia Status: Chronic (6) CAD (coronary artery disease) Status: Chronic (7) Diabetes Status: Chronic (8) Dyslipidemia Status: Chronic Specialty Discharge - Follow Up or Referrals Follow up with: Taylor Watts DO [Physician] - 2 Weeks (With BMP mag EKG) Discharge Plan - Discharge Data Disposition: Disch To Home/Self Care Condition at Discharge: Stable Discharge Diet: diabetic diet, heart healthy Activity: other (Post cath expectations) Hygiene: other (Post cath expectations) Weight Bearing at Discharge: other (Post cath expectations) Driving: other (Post cath expectations) Contact your physician if you experience:: fever over 101, Difficulty voiding, Redness or swelling, Nausea/Vomiting, Shortness of breath, Bleeding, pain uncontrolled by pain medications - Discharge Medications New Furosemide Tab [Lasix Tab] 40 mg PO DAILY tablet Lisinopril [Prinivil] 2.5 mg PO DAILY #30 tablet Continue Gabapentin 300 mg PO TID DULoxetine [Cymbalta] 20 mg PO BEDTIME Simvastatin 5 mg PO BEDTIME Melatonin 5 mg PO BEDTIME busPIRone [Buspar] 10 mg PO BEDTIME HYDROcodone/ACETAMIN 10-325 [Bernard 10-325] 1 tablet PO Q8H PRN #30 tablet PRN Reason: Pain Insulin NPH Hum/Reg Insulin Hm [NovoLIN 70/30] 25 unit SUBCUT BID #100 ml tiZANidine [Zanaflex] 4 mg PO QID Cholecalciferol [Vitamin D3] 1,000 unit PO DAILY Potassium Chloride 10 meq PO BID Aspirin EC Tab 81 mg PO DAILY #30 tablet Carvedilol [Coreg] 3.125 mg PO BID #60 tablet Bisacodyl Tab [Dulcolax Tab] 5 mg PO BEDTIME Ticagrelor [Brilinta] 90 mg PO BID #60 tablet Discontinued Furosemide 40 mg PO BID - Follow Up or Referral Follow Up: Taylor Watts DO [Physician] - 2 Weeks (With BMP mag EKG) - Forms/Instructions Instructions: Myocardial Infarction (GEN), Left Heart Catheterization (DC), Heart Healthy Diet (GEN), Coronary Intravascular Stent Placement (DC) Exam - Constitutional Vitals: Period Temp Pulse Resp BP Sys/Luna Pulse Ox Last 24 Hr 97.5 F-98.9 F 52-59 12-20 99-143/47-59 92-98 General appearance: normal weight, no acute distress - Head Head exam: Absent: abrasion, hematoma - Eye Eye exam: Present: EOMI. Absent: periorbital swelling, laceration to eyelids Pupils: Present: PEACE - Neck Neck exam: Absent: lymphadenopathy, tenderness - Respiratory Respiratory exam: Present: clear to auscultation bilaterally, other (Oxygen use via nasal cannula). Absent: accessory muscle use, chest wall tenderness - Cardiovascular Cardiovascular exam: Present: bradycardia, regular rate and rhythm - GI/Abdominal GI/Abdominal exam: Present: normal bowel sounds, soft. Absent: distended, tenderness - Extremities Exam Extremities exam: Present: other (Left: Soft without evidence of bleeding or hematoma). Absent: calf tenderness, edema - Neurological Exam Neurological exam: Present: alert, oriented X3 - Psychiatric Psychiatric exam: Present: normal affect, normal mood - Skin Skin exam: Present: warm, dry Discharge Results Procedures and tests throughout hospitalization: Pending Orders 03/11/17 04:00 BMP w/ Mg [Basic Metabolic Panel w/Mg] IN AM CBC [Comp Blood Count Auto Diff] IN AM Labs on day of discharge: Labs from last 24 hours 03/10/17 03/10/17 03/10/17 07:31 03:36 03:36 WBC 14.6 H RBC 4.57 Hgb 14.5 Hct 42.0 MCV 91.9 MCH 32 MCHC 34.5 RDW 13.8 Plt Count 290 MPV 11.8 Neut % (Auto) 54.7 Lymph % (Auto) 27.3 Kane % (Auto) 12.8 H Eos % (Auto) 3.8 Baso % (Auto) 0.4 Neut # (Auto) 8.0 H Lymph # (Auto) 4.0 Kane # (Auto) 1.9 H Eos # (Auto) 0.6 Baso # (Auto) 0.1 Immature Gran % 1.0 Nucleated RBC % 0.0 Immature Gran # 0.14 Nucleated RBCs # 0.00 Immature Plt Fraction 0.0 Sodium 137 Potassium 4.3 Chloride 102 Carbon Dioxide 28 Anion Gap 11.3 BUN 17 Creatinine 1.00 GFR Calculation 80 BUN/Creatinine Ratio 17.00 Glucose 188 H POC Glucose 128 H Calculated Osmolality 279.8 Calcium 8.5 Magnesium 2.2 03/10/17 03/09/17 03/09/17 03:36 21:38 16:56 WBC RBC Hgb Hct MCV MCH MCHC RDW Plt Count MPV Neut % (Auto) Lymph % (Auto) Kane % (Auto) Eos % (Auto) Baso % (Auto) Neut # (Auto) Lymph # (Auto) Kane # (Auto) Eos # (Auto) Baso # (Auto) Immature Gran % Nucleated RBC % Immature Gran # Nucleated RBCs # Immature Plt Fraction Sodium 137 Potassium 4.3 Chloride 102 Carbon Dioxide 25 Anion Gap 14.3 BUN 17 Creatinine 1.00 GFR Calculation 80 BUN/Creatinine Ratio 17.00 Glucose 184 H POC Glucose 205 H 203 H Calculated Osmolality 279.8 Calcium 8.8 Magnesium 03/09/17 11:45 WBC RBC Hgb Hct MCV MCH MCHC RDW Plt Count MPV Neut % (Auto) Lymph % (Auto) Kane % (Auto) Eos % (Auto) Baso % (Auto) Neut # (Auto) Lymph # (Auto) Kane # (Auto) Eos # (Auto) Baso # (Auto) Immature Gran % Nucleated RBC % Immature Gran # Nucleated RBCs # Immature Plt Fraction Sodium Potassium Chloride Carbon Dioxide Anion Gap BUN Creatinine GFR Calculation BUN/Creatinine Ratio Glucose POC Glucose 148 H Calculated Osmolality Calcium Magnesium - Imaging and Cardiology Cardiology Procedure: report reviewed by me Procedure: Chest x-ray: report reviewed by me DS: Provider Consults: 03/06/17 05:07 Consult to Pastoral Services [CONS] Routine Comment: Pastoral Screen: Request Director Of Finance Visit 03/07/17 15:22 Consult to Cardiac Rehabilitation [CONS] Routine Reason for Cardiac Rehabilitation: Risk Factor Modification Other Consult Comment: Evaluate and recommend 03/08/17 15:04 Consult to Occupational Therapy [CONS] Routine Reason for Occupational Therapy: Evaluate and Treat Consult to Physical Therapy [CONS] Routine Reason for Physical Therapy: Evaluate and Treat Expected date of discharge: 03/10/17 Maura Sesay Thomas, MD, personally performed the services described in this documentation, ascribed by Savanah Clark RN in my presence, and it is both accurate and complete .
== END 2017-03-10 16:22 | disposition home or self-care (01) | DRG 247 ==
LOC: EDBD 00:11 → N.ED 00:11 → EDUNIT# 00:11 → N.EDINP 01:59 → N.TELEN 02:22
PROVIDERS: ADMIT Internal Medicine Cardiovascular Disease; ATTEND Internal Medicine Cardiovascular Disease